=== PATIENT | male | born 1955 | race Caucasian/White ===

== ENCOUNTER 2019-04-19 11:50 | Inpatient (IN) | payer OTHER ==
[~2019-04-19] VITALS: Ht 170.2 cm; Wt 95.3 kg
[2019-04-19 11:50] VITALS: BP 185/84
[2019-04-19] MEDS ORDERED: ASA81BEC PO (12:09)
[2019-04-19] MEDS ORDERED: CASODEX 50 MG T50 MG PO (12:09)
[2019-04-19] MEDS ORDERED: TAMSULOSIN HCL0.4 MG PO (12:09)
[2019-04-19] MEDS ORDERED: PLAVIX 75 MG TA75 MG PO (12:09)
[2019-04-19] MEDS ORDERED: LISINOPRIL2.5 MG PO (12:09)
[2019-04-19] MEDS ORDERED: SYMBICORT160 MCG/4. INH (12:10)
[2019-04-19] MEDS ORDERED: VENTOLIN HFA INH8 GM INH (12:10)
[2019-04-19 12:38] LABS: ABSOLUTE BASOPHILS 0.1 thou/uL (0.0-0.2); ABSOLUTE LYMPHOCYTES 0.7 thou/uL (0.8-5.3); ABSOLUTE NEUTROPHILS 5.9 thou/uL (1.6-8.1); BASOPHILS 0.8 %; EOSINOPHILS 0.5 %; HEMATOCRIT 38.6 % (42.0-52.0); HEMOGLOBIN 13.5 gm/dL (14.0-18.0); LYMPHOCYTES 9.3 %; MCH 34.8 pg (26.0-34.0); MCHC 35.1 g/dL (28.0-37.0); MCV 99.2 fL (80.0-100.0); MONOCYTES 12.7 %; MPV 6.3 fl. (7.2-11.1); NUCLEATED RBCS 0 /100WBC; PLATELET COUNT* 356 thou/uL (150-400); POLYS 76.7 %; RBC 3.89 mil/uL (4.50-6.00); RDW-CV 15.2 % (10.5-14.5); WBC 7.7 thou/uL (4.0-11.0)
[2019-04-19 12:39] LABS: PCO2 40.5 mmHg (35.0-45.0); pH 7.459 (7.340-7.450)
[2019-04-19 12:42] LABS: PO2 175.3 mmHg (75.0-100.0)
[2019-04-19 12:51] LABS: CALCIUM 8.7 mg/dL (8.5-10.1); CREATININE 1.2 mg/dL (0.6-1.3); POTASSIUM 3.4 mmol/L (3.5-5.1)
[2019-04-19 12:54] LABS: PROTIME 10.6 Seconds (9.20-11.50)
[2019-04-19 12:55] LABS: ALBUMIN 3.4 g/dL (3.4-5.0); MAGNESIUM 1.8 mg/dL (1.8-2.4); TOTAL BILIRUBIN 0.3 mg/dL (<0.1-1.0); TOTAL PROTEIN 7.7 g/dL (6.4-8.2)
[2019-04-19 15:48] LABS: INFLUENZA A ANTIGEN Negative (Negative); INFLUENZA B ANTIGEN Negative (Negative)
[2019-04-19 16:36] VITALS: BP 110/78
[2019-04-19 17:00] VITALS: BP 132/83
[2019-04-19 17:05] VITALS: BP 131/69
--- NOTE | 2019-04-19 17:37 | NUR ---
REC'D REPORT FROM ED RN APPROX 1635. PATIENT TO UNIT VIA GURNEY AND ED STAFF AT 1648. A&OX4, ABLE TO AMBULATE FROM GURNEY TO BED WITH MINIMUM ASSIST AND CAN COMMUNICATE NEEDS TO STAFF. ASSESSMENT COMPLETE, VS OBTAINED. PATIENT IS TACHYPNEIC AND ST ON THE MONITOR. O2 SATS 93% ON 2L. ORIENTED TO ROOM, BED CONTROLS, CALL LIGHT WITHIN REACH. PATIENT WITH STEADY GAIT.
[2019-04-19 20:00] VITALS: BP 149/78
[2019-04-20] VITALS: BP 139/68
--- NOTE | 2019-04-20 02:03 | NUR ---
PT ALERT ORIENTED. UP AD RACHEL IN ROOM. BLADDER SCAN AT SHIFT CHG SHOWED 800MLS. ORDER FOR STRAIGHT CATH OBTAINED. 1000ML DK YELLOW RETURN. BLADDER SCAN AT MN SHOWED 600ML. STRAIGHT CATH WITH 800ML RETURN LIGHT YELLOW. NS AT 150MLS/HR. PT DENIES PAIN. O2 AT 2 LITERS NC. LOOSE COUGH. WCTM.
[2019-04-20 04:00] VITALS: BP 150/81
--- NOTE | 2019-04-20 04:50 | NUR ---
PT CONTINUES TO HAVE URINARY RETENTION. BLADDER SCANNER SHOWED 756MLS. MARTIN PLACED WITH CLEAR YELLOW.
--- NOTE | 2019-04-20 06:36 | NUR ---
ORDER FOR UROLOGY CONSULT OBTAINED. ROUTINE CONSULT PLACED.
[2019-04-20 08:00] VITALS: BP 155/85
[2019-04-20 11:30] VITALS: BP 164/75
[2019-04-20 13:27] LABS: URINE BILIRUBIN NEGATIVE (Negative); URINE BLOOD 3+ (Negative); URINE CLARITY CLEAR; URINE COLOR YELLOW; URINE GLUCOSE-RANDOM NEGATIVE (Negative); URINE KETONES NEGATIVE (Negative); URINE LEUKOCYTES-REFLEX TRACE (Negative); URINE NITRITE-REFLEX NEGATIVE (Negative); URINE PROTEIN TRACE (Negative); URINE UROBILINOGEN 0.2 E.U./dl (0.2-1.0)
[2019-04-20 13:49] LABS: SQUAMOUS 0-3 Few /LPF (0-3); URINE RBC >20 Many /HPF (0-2); URINE WBC-REFLEX 0-5 Rare /HPF (0-5)
[2019-04-20 13:50] LABS: CASTS None Seen /LPF (None Seen); CRYSTALS None Seen /LPF (None Seen); MUCUS None Seen strn/LPF (None Seen)
[2019-04-20 16:00] VITALS: BP 145/71
--- NOTE | 2019-04-20 18:29 | NUR ---
PT VSS, SR TO ST ON TELE, A&OX4, UP AD RACHEL, NC@2L O2- BASELINE, HOURLY ROUNDING PERFORMED, POSSESSIONS AND CALL LIGHT WITHIN REACH.
[2019-04-20 20:00] VITALS: BP 157/80
[2019-04-21] VITALS: BP 156/82
[2019-04-21 04:00] VITALS: BP 167/86
[2019-04-21 05:09] LABS: HEMATOCRIT 36.2 % (42.0-52.0); HEMOGLOBIN 12.3 gm/dL (14.0-18.0); MCH 34.1 pg (26.0-34.0); MCV 100.4 fL (80.0-100.0); MPV 6.3 fl. (7.2-11.1); RBC 3.61 mil/uL (4.50-6.00); RDW-CV 15.5 % (10.5-14.5); WBC 16.2 thou/uL (4.0-11.0)
[2019-04-21 05:13] LABS: CALCIUM 8.7 mg/dL (8.5-10.1); CREATININE 0.9 mg/dL (0.6-1.3); MAGNESIUM 2.1 mg/dL (1.8-2.4); POTASSIUM 3.9 mmol/L (3.5-5.1)
[2019-04-21] MEDS ORDERED: PREDNISONE 20 M20 MG PO (07:43)
[2019-04-21] MEDS ORDERED: MUCINEX600 MG PO (07:43)
[2019-04-21] MEDS ORDERED: LEVAQUIN 750 M750 MG PO (07:43)
[2019-04-21 08:08] VITALS: BP 162/75
[2019-04-21 11:27] VITALS: BP 147/85
--- NOTE | 2019-04-21 12:40 | EKG ---
[place] [address] ELECTROCARDIOGRAM REPORT Name: MARY ELLEN ELMORE Room: [address] ADM IN [facility].#: [id number] Admission: 04/19/19 Attend Phys: Shahid Pratt MD Discharge: Date of : 57 Report #: [id number] THIS REPORT FOR: //name// [facility] ED Test Date: 2019-04-19 Test Time: 12:04:06 Pat Name: MARY ELLEN ELMORE Department: Room: [facility] Gender: M Guide Winder: ANTONIETA : 1955 Requested By: Shira Rocha Order Number: [id number] MD: Fadi Mijares Measurements Intervals [place] Rate: 121 P: 78 SC: 138 QRS: 46 QRSD: 79 T: 84 QT: 310 QTc: 440 Interpretive Statements Sinus tachycardia LAE, consider biatrial enlargement Anterior infarct, old Borderline repolarization abnormality No previous ECG available for comparison Electronically Signed On 04-21-2019 12:39:37 RATE QUOTING OPERATOR by Fadi Mijares [email or web address] <ELECTRONICALLY SIGNED> By: Fadi Mijares MD, [facility] 04/21/19 1239 1204 1204 Fadi Mijares MD, FACC /EPI
--- NOTE | 2019-04-21 19:52 | NUR ---
Patient awake in bed. All safety measures maintained. Shortness of breath and chest tightness with ambulation this afternoon. Physician notified and discharge delayed.
[2019-04-21 20:00] VITALS: BP 152/88
--- NOTE | 2019-04-22 06:32 | NUR ---
PATIENT SLEPT WELL DURING THIS SHIFT. PT ON O2 @ 2 LITERS PER NASAL CANNULA. PT WITH MARTIN CATHETER WITH YELLOW URINE. PT DENIES PAIN/NAUSEA DURING THIS SHIFT. PT DENIES NEEDS AT THIS TIME. FREQUENTLY USED ITEMS AND CALL LIGHT WITHIN REACH. SIDERAILS UPX2. WILL CONTINUE TO MONITOR.
[2019-04-22 08:01] VITALS: BP 164/77
--- NOTE | 2019-04-22 12:00 | NUR ---
CM COMPLETED INITIAL ASSESSMENT TO DISCUSS D/C PLANNING. PT STATES HE LIVES AT HOME W/HIS ELDERLY FATHER. PT STATED IS IS SEMI-ACTIVE AND INDEPENDENT W/ADLS. PT DRIVES. PT IS CURRENTLY DOING OUTPATIENT PULMONARY REHAB. PT HAS NO HX OF SNF/HH. PT HAS NEBULIZER, CONCENTRATOR, WALKER AND CANE AT HOME. PT HAD OZ TANK DELIVERED TO HIS ROOM. PT HAS COUSIN WHO FLEW IN FROM OUT OF TOWN TO HELP OUT FOR A FEW DAYS. CM TO CONT TO FOLLOW TO ASSIST NEEDED.
[2019-04-22 15:44] VITALS: BP 164/77
[2019-04-22 15:51] VITALS: BP 164/77
--- NOTE | 2019-04-22 16:26 | NUR ---
SENT REFERRALS TO: [facility] [phone] [facility] [phone] [facility] [phone]
[2019-04-22 16:56] VITALS: BP 164/77
[2019-04-22 17:00] VITALS: BP 160/89
--- NOTE | 2019-04-22 18:09 | NUR ---
PT A&OX4 VSS. PT IV DC'D, NO REDNESS/SWELLING NOTED AT SITE. PT ON 2L O2 HERE WELL HOME. PT HAS MARTIN R/T URINARY RETENTION, PT WILL DC HOME WITH MARTIN IN PLACE. PT UP AD RACHEL. PT LUNGS SOUNDS COARSE UPON EXAM. RT ADMINISTERED NEB TX THIS SHIFT. PT TO HAVE [facility] [phone] WITH NURSING AND PT SERVICES. [facility] TO CONTACT PT TO SET APPT. PT RX CALLED INTO PHARMACY YESTERDAY, MEDS PICKED UP BY FAMILY PRIOR TO DC FROM HOSPITAL. PT STATES UNDERSTANDING OF DC INSTRUCTIONS AND RX INFORMATION PROVIDED. PT AGREES TO F/U WITH APPROPRIATE POHYSICIANS DIRECTED. PT LEAVES UNIT IN WC ON OXYGEN PER NASAL CANNULA. PT ESCORTED FROM UNIT WITH NURSING STAFF.
--- NOTE | 2019-04-25 15:18 | CON ---
[address] [address] CONSULTATION Name: MARY ELLEN ELMORE Room: [address] IN M.R.#: [id number] Admission: 04/19/19 Attend Phys: Shahid Pratt MD Discharge: 04/22/19 Date of : 57 Report #: [id number] THIS REPORT FOR: //name// CC: Shahid Davidson DATE OF SERVICE: 04/19/2019 REFERRING PHYSICIAN: Shahid Pratt MD CONSULTING PHYSICIAN: Shahid Kauffman MD REASON FOR CONSULTATION: Urinary retention. HISTORY OF PRESENT ILLNESS: This is a 64-year-old gentleman with a history of prostate cancer. He is well known to my partner, Dr. Alejandro. He saw Dr. Alejandro about 3 weeks ago. He is currently on Casodex and LHRH agonist for his prostate cancer. He presented to the Emergency Room and was admitted for COPD exacerbation. He was also found to be in acute urinary retention. He underwent straight cath on several occasions with residual greater than 1500. Lock catheter was then placed to dependent drainage. He is still undergoing evaluation and workup for his COPD. He noted at home that he was urinating without difficulty, but did note that it was fairly small amounts. Denies any dysuria, hematuria, frequency or urgency. He has had some problems with gross hematuria intermittently as well as gross blood per rectum. This was felt to be due to his radiation for his prostate cancer and he was recently referred by Dr. Alejandro to hyperbaric oxygen treatment. He has not had a chance to set those up yet. PAST MEDICAL HISTORY: Hypertension, prostate cancer, COPD and coronary artery disease. ALLERGIES: PENICILLIN. FAMILY HISTORY: Noncontributory. SOCIAL HISTORY: Heavy smoker, occasional alcohol use. MEDICATIONS: Tamsulosin, aspirin, Casodex, Plavix, lisinopril, Symbicort and albuterol. REVIEW OF SYSTEMS: CONSTITUTIONAL: He denies any fevers or chills. PULMONARY: He does note shortness of breath, difficulty catching his air, especially with exertion. CARDIOVASCULAR: He does have some orthopnea, [place] [address] CONSULTATION Name: MARY ELLEN ELMORE Room: [address]#: [id number] Admission: 04/19/19 Attend Phys: Shahid Pratt MD Discharge: 04/22/19 Date of : 57 Report #: [id number]. GASTROINTESTINAL: No nausea or vomiting. He does have some gross blood per rectum. HEMATOLOGIC: No easy bruising or bleeding. ENDOCRINE: No problems with hot flashes or cold intolerance. He is not diabetic. LYMPHATIC: He denies any swollen lymph nodes. EARS, NOSE AND THROAT: He denies any earaches or hearing loss. No sore throat. No recent visual changes. GENITOURINARY: See HPI. MUSCULOSKELETAL: No recent aches or pains. No changes in joints. No swelling. PHYSICAL EXAMINATION: VITAL SIGNS: Temperature is 36.6, heart rate 104, respiratory rate 18 and blood pressure 155/85. GENERAL: He is alert and oriented x 3. He is in no apparent distress. HEENT: Normocephalic and atraumatic. O2 per nasal cannula. Respirations are mildly labored with conversation. CARDIOVASCULAR: Regular rate and rhythm. ABDOMEN: Soft, nondistended and nontender. BACK: No CVA tenderness. EXTREMITIES: He has got a normal penis and scrotum. Lock catheter dependent drainage with urine clear. Good range of motion. No cyanosis, clubbing or edema. NEUROLOGIC: Cranial nerves 2-12 are intact. LABORATORY DATA: Sodium 139, potassium 3.4, BUN 7 and creatinine 1.2. White count 7.7, hemoglobin 13.5 and platelets 356. ASSESSMENT AND PLAN: 1. Acute urinary retention is likely multifactorial. The patient does not have a prostate, but starting Flomax is reasonable as I can have some benefit in this setting, would continue tamsulosin/Flomax. He does note that he is constipated, working on a bowel regimen. Many of the medications he is on for COPD, are known to cause or exacerbate retention. This may be contributing to his symptoms, would continue Lock for now. We did discuss clean intermittent catheterization, but the patient does not feel that he is able to do that at this time. It sounds like the patient may be discharged today in the next day or two. I would continue the Lokc for at least 5 days. He can follow up as an outpatient for a voiding trial at that time. We will check a urinalysis. 2. Prostate cancer. PSA earlier this month was 4.17. He is currently on LHRH agonist and Casodex, I will continue those. Follow up with Dr. Alejandro as scheduled. 3. Gross hematuria. His urine is visibly clear in his catheter today. Continue to arrange hyperbaric oxygen as planned by Dr. Alejandro. Hopefully, the [address] [address] CONSULTATION Name: MARY ELLEN ELMORE Room: [address] IN [facility].#: [id number] Admission: 04/19/19 Attend Phys: Shahid Pratt MD Discharge: 04/22/19 Date of : 57 Report #: [id number] patient will be able to lie flat for his treatments. We will try to recommend maximizing his lungs if possible. <ELECTRONICALLY SIGNED> By: Fadi March MD 04/25/19 1518 1048 1436Shahid Kauffman MD /nt
== END 2019-04-22 18:15 | disposition home health service (06) | DRG 871 ==
LOC: M.ERS 11:50 → M.TBA-ER 15:50 → M.2W 15:50 → M.ORTHSURG 04-21 19:50
PROVIDERS: Personal Emergency Response Attendant; ADMIT Internal Medicine
DX: A41.9 Sepsis, unspecified organism (principal); J96.01 Acute respiratory failure with hypoxia; J15.6 Pneumonia due to other Gram-negative bacteria; J44.1 Chronic obstructive pulmonary disease with (acute) exacerbation; N30.41 Irradiation cystitis with hematuria; J44.0 Chronic obstructive pulmonary disease with (acute) lower respiratory infection; I25.10 Atherosclerotic heart disease of native coronary artery without angina pectoris; R33.9 Retention of urine, unspecified; J20.9 Acute bronchitis, unspecified; E87.6 Hypokalemia; Z88.0 Allergy status to penicillin; Z99.81 Dependence on supplemental oxygen; Z85.46 Personal history of malignant neoplasm of prostate; Z95.1 Presence of aortocoronary bypass graft; Z28.21 Immunization not carried out because of patient refusal

== ENCOUNTER 2020-03-19 13:16 | Emergency (ER) | payer OTHER ==
[~2020-03-19] VITALS: Ht 170.2 cm; Wt 86.2 kg
[~2020-03-19 13:16] MED LIST: ASA81BEC PO; CASODEX 50 MG T50 MG PO; LEVAQUIN 750 M750 MG PO; LISINOPRIL2.5 MG PO; MUCINEX600 MG PO; PLAVIX 75 MG TA75 MG PO; PREDNISONE 20 M20 MG PO; SYMBICORT160 MCG/4. INH; TAMSULOSIN HCL0.4 MG PO; VENTOLIN HFA INH8 GM INH
[2020-03-19] MEDS ORDERED: LIPITOR40 MG PO (13:34)
[2020-03-19] MEDS ORDERED: NORCO 5-325 TA1 EAC2 PO (13:35)
[2020-03-19 15:30] LABS: ABSOLUTE BASOPHILS 0.1 thou/uL (0.0-0.2); ABSOLUTE LYMPHOCYTES 1.8 thou/uL (0.8-5.3); ABSOLUTE MONOCYTES 0.8 thou/uL (0.0-1.2); ABSOLUTE NEUTROPHILS 9.3 thou/uL (1.6-8.1); BASOPHILS 1.2 %; EOSINOPHILS 0.3 %; HEMATOCRIT 37.6 % (42.0-52.0); HEMOGLOBIN 12.3 gm/dL (14.0-18.0); LYMPHOCYTES 15.3 %; MCH 32.9 pg (26.0-34.0); MCHC 32.6 g/dL (28.0-37.0); MCV 100.9 fL (80.0-100.0); MONOCYTES 6.4 %; MPV 7.1 fl. (7.2-11.1); NUCLEATED RBCS 0 /100WBC; PLATELET COUNT* 325 thou/uL (150-400); POLYS 76.8 %; RBC 3.73 mil/uL (4.50-6.00); RDW-CV 16.7 % (10.5-14.5); WBC 12.1 thou/uL (4.0-11.0)
[2020-03-19 15:32] LABS: CALCIUM 8.6 mg/dL (8.5-10.1); CREATININE 1.4 mg/dL (0.6-1.3); POTASSIUM 4.3 mmol/L (3.5-5.1)
[2020-03-19 15:37] LABS: ALBUMIN 3.1 g/dL (3.4-5.0); TOTAL BILIRUBIN 0.6 mg/dL (<0.1-1.0); TOTAL PROTEIN 7.1 g/dL (6.4-8.2)
[2020-03-19 15:51] LABS: URINE BLOOD NEGATIVE (Negative); URINE CLARITY CLEAR; URINE COLOR YELLOW; URINE GLUCOSE-RANDOM TRACE (Negative); URINE KETONES TRACE (Negative); URINE LEUKOCYTES-REFLEX NEGATIVE (Negative); URINE PROTEIN 2+ (Negative); URINE SPECIFIC GRAVITY 1.025 (1.005-1.030)
[2020-03-19 15:54] LABS: URINE BILIRUBIN 2+ (Negative); URINE NITRITE-REFLEX POSITIVE (Negative)
[2020-03-19 15:58] LABS: CRYSTALS None Seen /LPF (None Seen); HYALINE CASTS >10 Many /LPF (None Seen); ICTOTEST (BILI CONFIRMATORY) Positive (Negative); SQUAMOUS 0-3 Few /LPF (0-3); URINE RBC 0-2 Rare /HPF (0-2); URINE WBC-REFLEX 0-5 Rare /HPF (0-5)
[2020-03-19] MEDS ORDERED: APAP W/CODEINE1 TA2 PO (17:12)
[2020-03-19] MEDS ORDERED: FLAGYL500 M1 PO (17:12)
[2020-03-19] MEDS ORDERED: ONDANSETRON ODT4 MG PO (17:12)
[2020-03-19] MEDS ORDERED: CIPRO500 MG PO (17:12)
[2020-03-19 17:24] VITALS: BP 126/71
--- NOTE | 2020-03-20 15:40 | EKG ---
[place] [address] ELECTROCARDIOGRAM REPORT Name: MARY ELLEN ELMORE Room: [facility]#: [id number] Admission: 03/19/20 Attend Phys: Discharge: 03/19/20 Date of : 57 Date of Service: 03/19/20 1530 Report #: [id number] THIS REPORT FOR: //name// [facility] ED Test Date: 2020-03-19 Test Time: 15:30:00 Pat Name: MARY ELLEN ELMORE Department: Room: Gender: Hair Specialist: [place] : 1955 Requested By: Marti Mathew Order Number: [id number] MD: Gabo Saab Measurements Intervals [place] Rate: 91 P: 33 FL: 99 QRS: 56 QRSD: 80 T: 82 QT: 367 QTc: 452 Interpretive Statements Sinus rhythm Short FL interval Baseline wander in lead(s) V6 Compared to ECG 04/19/2019 12:04:06 Short FL interval now present Sinus tachycardia no longer present Myocardial infarct finding no longer present Electronically Signed On 03-20-2020 15:40:42 REGISTERED RESPIRATORY THERAPIST by Gabo Saab [email or web address] <ELECTRONICALLY SIGNED> By: Samantha Saab MD, FAC 03/20/20 1540 29 29 Samantha Saab MD, FAC /EPI
== END 2020-03-19 17:25 | disposition home or self-care (01) ==
LOC: M.ERS 13:16
PROVIDERS: Physician Assistant
DX: R10.30 Lower abdominal pain, unspecified (principal); R11.2 Nausea with vomiting, unspecified; R20.0 Anesthesia of skin; K12.0 Recurrent oral aphthae; I10 Essential (primary) hypertension; F17.210 Nicotine dependence, cigarettes, uncomplicated; Z20.828 Contact with and (suspected) exposure to other viral communicable diseases; Z98.890 Other specified postprocedural states; Z79.82 Long term (current) use of aspirin; Z79.899 Other long term (current) drug therapy; Z88.0 Allergy status to penicillin

== ENCOUNTER 2020-03-23 09:41 | Inpatient (IN) | payer OTHER ==
[~2020-03-23] VITALS: Ht 172.7 cm; Wt 88.1 kg
--- NOTE | ~2020-03-23 | EMG ---
[address] [address] EMG NERVE CONDUCTION REPORT Name: MARY ELLEN ELMORE Room: [address] IN M.R.#: [id number] Admission: 03/23/20 Attend Phys: Emma Barron Discharge: Date of : 57 Report #: [id number] THIS REPORT FOR: //name// CC: Birgit Tinajero DATE OF SERVICE: 03/29/2020 The patient's EMG was attempted in an old machine, which we were able to get. The machine did not function properly many times Therefore, the results should be considered tentative. I did the left side. I was able to do the left posterior tibial, which showed a distal latency of 7.0, amplitude of 4.8, conduction velocity of 34. Left common peroneal nerve showed a distal latency of 6.7, amplitude of 1.2, conduction velocity of 54. Extensor digitorum brevis appeared to be atrophic. I tried the left sural nerve, there was no response. Left median motor showed a distal latency of 4.9, amplitude of 1.9, conduction velocity of 48. Left median sensory showed only questionable response at a distal latency of 3.7 and an amplitude of 9.3. Left ulnar motor showed a distal latency of 3.8, amplitude of 3.4. Sampling of left tibialis anterior and left lateral gastrocs were mostly unremarkable. IMPRESSION: This study is difficult to interpret. There is no sural sparing. There appeared to be generalized neuropathy, but some of the finding does fall in the demyelinating range. 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 However, the possibility of Guillain-Beloit need to be entertained and the patient will have a spinal tap to further evaluate that. Thank you very much for this referral. By: 1744 [id number] Zepeda MD /nt
[~2020-03-23 09:41] MED LIST changes: +APAP W/CODEINE1 TA2 PO; +CIPRO500 MG PO; +FLAGYL500 M1 PO; +LIPITOR40 MG PO; -LISINOPRIL2.5 MG PO; +LISINOPRIL20 MG PO; +NORCO 5-325 TA1 EAC2 PO; +ONDANSETRON ODT4 MG PO
[2020-03-23 09:46] VITALS: BP 121/74
[2020-03-23 10:21] LABS: HEMATOCRIT 38.6 % (42.0-52.0); HEMOGLOBIN 12.8 gm/dL (14.0-18.0); MCH 33.4 pg (26.0-34.0); MCHC 33.2 g/dL (28.0-37.0); MCV 100.4 fL (80.0-100.0); NUCLEATED RBCS 0 /100WBC; PLATELET COUNT* 358 thou/uL (150-400); RBC 3.84 mil/uL (4.50-6.00)
[2020-03-23 10:53] LABS: ABSOLUTE LYMPHOCYTES 0.7 thou/uL (0.8-5.3); ABSOLUTE MONOCYTES 0.4 thou/uL (0.0-1.2); PLATELET ESTIMATE ADEQUATE
[2020-03-23 10:57] LABS: CALCIUM 7.5 mg/dL (8.5-10.1); POTASSIUM 4.6 mmol/L (3.5-5.1)
[2020-03-23 11:01] LABS: TOTAL BILIRUBIN 0.6 mg/dL (<0.1-1.0); TOTAL PROTEIN 7.2 g/dL (6.4-8.2)
[2020-03-23 15:17] LABS: URINE BILIRUBIN NEGATIVE (Negative); URINE BLOOD TRACE (Negative); URINE CLARITY CLEAR; URINE COLOR YELLOW; URINE GLUCOSE-RANDOM NEGATIVE (Negative); URINE KETONES NEGATIVE (Negative); URINE LEUKOCYTES-REFLEX NEGATIVE (Negative); URINE NITRITE-REFLEX NEGATIVE (Negative); URINE PROTEIN 3+ (Negative); URINE UROBILINOGEN 0.2 E.U./dl (0.2-1.0)
[2020-03-23 15:32] LABS: AMORPHOUS URATES Moderate /LPF (None Seen); BACTERIA-REFLEX 1-9 Few /HPF (None Seen); FINE GRANULAR CASTS 0-3 Few /LPF (None Seen); HYALINE CASTS 0-3 Few /LPF (None Seen); SQUAMOUS 4-10 Moderate /LPF (0-3); URINE RBC 0-2 Rare /HPF (0-2); URINE WBC-REFLEX 6-15 Few /HPF (0-5)
[2020-03-23 17:40] VITALS: BP 119/86
[2020-03-23 18:00] VITALS: BP 145/76
[2020-03-23 20:00] VITALS: BP 166/82
[2020-03-24] VITALS: BP 123/72
[2020-03-24 04:11] VITALS: BP 139/82
[2020-03-24 05:00] LABS: CALCIUM 7.1 mg/dL (8.5-10.1); CREATININE 5.3 mg/dL (0.6-1.3)
[2020-03-24 05:03] LABS: MAGNESIUM 1.5 mg/dL (1.8-2.4); PHOSPHORUS* 3.4 mg/dL (2.5-4.9)
[2020-03-24 05:04] LABS: POTASSIUM 4.8 mmol/L (3.5-5.1)
[2020-03-24 11:09] VITALS: BP 136/76
--- NOTE | 2020-03-24 12:43 | EKG ---
[place] [address] ELECTROCARDIOGRAM REPORT Name: MARY ELLEN ELMORE Room: [address] ADM IN [facility]#: [id number] Admission: 03/23/20 Attend Phys: Stuart Tinajero Discharge: Date of : 57 Date of Service: 03/23/20 1011 Report #: [id number] THIS REPORT FOR: //name// [facility] ED Test Date: 2020-03-23 Test Time: 10:11:36 Pat Name: MARY ELLEN ELMORE Department: Room: [facility] Gender: M Escort Blind: [place] : 1955 Requested By: Tab Sifuentes Order Number: [id number] MD: Kartik Bain Measurements Intervals [place] Rate: 96 P: 21 FL: 107 QRS: 59 QRSD: 74 T: 35 QT: 355 QTc: 449 Interpretive Statements Sinus rhythm Short FL interval Low voltage, extremity leads Compared to ECG 03/19/2020 15:30:00 No significant changes noted Electronically Signed On 03-24-2020 12:43:49 PHOTOGRAPHIC EQUIPMENT INSPECTOR by Kartik Bain [email or web address] <ELECTRONICALLY SIGNED> By: Kartik Bain MD, FACC 03/24/20 1243 1011 1011 Kartik Bain MD, FACC /EPI
[2020-03-24 13:21] VITALS: BP 140/77
[2020-03-24 17:44] VITALS: BP 126/71
[2020-03-24 20:00] VITALS: BP 163/60
[2020-03-25] VITALS: BP 150/80
[2020-03-25 04:00] VITALS: BP 142/80
[2020-03-25 04:58] LABS: ABSOLUTE LYMPHOCYTES 0.9 thou/uL (0.8-5.3); ABSOLUTE MONOCYTES 0.6 thou/uL (0.0-1.2); BASOPHILS 0.3 %; HEMATOCRIT 37.5 % (42.0-52.0); HEMOGLOBIN 12.5 gm/dL (14.0-18.0); LYMPHOCYTES 6.9 %; MCH 33.6 pg (26.0-34.0); MCHC 33.4 g/dL (28.0-37.0); MCV 100.6 fL (80.0-100.0); MONOCYTES 4.7 %; MPV 7.2 fl. (7.2-11.1); NUCLEATED RBCS 0 /100WBC; PLATELET COUNT* 293 thou/uL (150-400); POLYS 88.1 %; RBC 3.73 mil/uL (4.50-6.00); RDW-CV 16.6 % (10.5-14.5); WBC 12.5 thou/uL (4.0-11.0)
[2020-03-25 05:23] LABS: CALCIUM 7.3 mg/dL (8.5-10.1); MAGNESIUM 2.4 mg/dL (1.8-2.4); POTASSIUM 4.8 mmol/L (3.5-5.1)
[2020-03-25 05:32] LABS: CREATININE 6.3 mg/dL (0.6-1.3)
[2020-03-25 08:00] VITALS: BP 162/88
[2020-03-25 12:00] VITALS: BP 118/73
[2020-03-25 16:34] VITALS: BP 143/70
--- NOTE | 2020-03-25 17:18 | CON ---
[address] [address] CONSULTATION Name: MARY ELLEN ELMORE Room: [address] IN .R.#: [id number] Admission: 03/23/20 Attend Phys: Emma Barron Discharge: Date of : 57 Report #: [id number] THIS REPORT FOR: //name// cc: Birgit Davidson MD, Molly MD ~ DATE OF SERVICE: 03/24/2020 NEPHROLOGY CONSULTATION CONSULTING PHYSICIAN: Stuart Tinajero DO REASON FOR NEPHROLOGY CONSULTATION: Acute kidney injury. REASON FOR ADMISSION: Abdominal pain, nausea and vomiting. HISTORY OF PRESENT ILLNESS: This is a 64-year-old male, who came in with abdominal pain and nausea and vomiting, not being able to eat anything. He was here in the hospital, presented to the Emergency Room on 03/19/2020 with similar symptoms and he was sent home on antibiotics for colitis, ciprofloxacin and Flagyl. He had abdominal CT scan with IV contrast at that time and his creatinine was 1.4 at that time, whereas at baseline, his creatinine runs normal at 0.9 and this was 03/2019. The patient also has been taking ibuprofen 800 mg twice a day and he took it for 3 weeks. He did not take it last week, but before that, he took it for a total of 3 weeks for some dental procedure. Lock catheter is in place and he has been making some urine and his creatinine was at 5.0 when he came in yesterday and it is at 5.3 today. He has been getting IV fluids. He is also kept n.p.o. for his abdominal pain and he is going to get an abdominal ultrasound as well, but the abdominal CT scan this time did not reveal much. There is no evidence of any hydronephrosis. ALLERGIES: PENICILLINS. REVIEW OF SYSTEMS: As mentioned in history of present illness, otherwise 10-point review of systems are negative. PAST MEDICAL AND SURGICAL HISTORY: Includes coronary artery bypass, left rotator cuff repair, right wrist surgery, blood clots, hypertension, enlarged prostate, aortic femoral stents. HOME MEDICATIONS: Include tamsulosin, Cipro, Flagyl, aspirin, Casodex and Plavix, budesonide, formoterol and lisinopril 40 mg a day, atorvastatin and albuterol. FAMILY HISTORY: [place] [address] CONSULTATION Name: CATARINAMARY ELLEN Eddie Room: [address]#: [id number] Admission: 03/23/20 Attend Phys: Emma Barron Discharge: Date of : 57 Report #: [id number] SOCIAL HISTORY: He smokes every day. Does not use alcohol or recreational drugs that I know of. PHYSICAL EXAMINATION: VITAL SIGNS: Blood pressure is 139/82, pulse ox is 95% on room air, temperature was 36.7, pulse rate was 85, respiratory rate was 20. GENERAL: He is awake, alert, oriented x 3. HEAD AND EYES: Atraumatic and normocephalic. Conjunctivae normal. EARS, NOSE, AND THROAT: Normal ears and nose. Mucous membranes are moist. NECK: No JVD. CHEST: Bilaterally clear to auscultation anteriorly. No crackles or wheezing. CARDIOVASCULAR: S1, S2 normal. No murmurs. ABDOMEN: Soft, nondistended, nontender. Bowel sounds are present. EXTREMITIES: Lower extremities: There is no lower extremity edema. SKIN: Dry. Turgor is decreased. NEUROLOGIC: Function is grossly intact. PSYCHIATRIC: Mood seems to be normal. LABORATORY DATA: WBC 13, hemoglobin 12.8. Potassium was 4.8, CO2 was 19, BUN was 16, creatinine was 5.3 and other labs are reviewed. IMAGING: Chest x-ray and abdominal CT scan were reviewed. ASSESSMENT: 1. Acute kidney injury in the setting of intravascular volume depletion, dehydration, nausea and vomiting, use of lisinopril at home. His baseline creatinine is normal at 0.9, but it was 1.4, 03/19/2020, when he did get IV contrast. A contrast-induced nephropathy is also possible. He presents with a creatinine of 5.0. He was also started on ciprofloxacin on 03/19/2020. So, acute interstitial nephritis is also a possibility. He has been making some urine. He has a Lock catheter in place. Renal imaging and abdominal CT scan did not show any hydronephrosis. 2. Hypertension. Blood pressure is controlled. Please hold off on the lisinopril. 3. Nausea, vomiting, and abdominal pain. We will defer to primary team. He was recently started on Cipro and Flagyl for his colitis. 4. History of enlarged prostate and likely prostate cancer because he is on Casodex. He has a Lock for now and continue his Flomax. 5. Anion gap metabolic acidosis in the setting of renal insufficiency. 6. Hypomagnesemia. 7. The patient also presented with rectal pain. We will defer to primary team. PLAN: [address] [address] CONSULTATION Name: MARY ELLEN ELMORE Room: [address] IN [facility].#: [id number] Admission: 03/23/20 Attend Phys: Emma Barron Discharge: Date of : 57 Report #: [id number] 1. Continue Lock catheter and strict I's and O's. 2. Once he is started on a diet, it should be a renal diet. 3. Strict I's and O's on him, continue normal saline at 100 mL an hour, continue to hold lisinopril and other nephrotoxic agents. Please do not give him any NSAIDs. No IV contrast. 4. Please replace his magnesium as per protocol. 5. Continue his Flomax. 6. Check morning labs and discussed with the patient's nurse, and the patient will continue to follow with you. <ELECTRONICALLY SIGNED> By: Bushra Gonsalez MD 03/25/20 1718 0715 0822Bushra Gonsalez MD /nt
[2020-03-25 20:10] VITALS: BP 162/77
[2020-03-26] VITALS (7 sets, daily range): BP systolic 143–166; BP diastolic 69–92
[2020-03-26 09:49] LABS: HEMATOCRIT 35.1 % (42.0-52.0); HEMOGLOBIN 11.6 gm/dL (14.0-18.0); MCH 33.8 pg (26.0-34.0); MCHC 33.2 g/dL (28.0-37.0); MCV 101.9 fL (80.0-100.0); MPV 7.5 fl. (7.2-11.1); NUCLEATED RBCS 0 /100WBC; PLATELET COUNT* 366 thou/uL (150-400); RBC 3.44 mil/uL (4.50-6.00); RDW-CV 17.5 % (10.5-14.5); WBC 13.5 thou/uL (4.0-11.0)
[2020-03-26 10:48] LABS: ANION GAP 13 mmol/L (7-16); BUN 42 mg/dL (7-18); CHLORIDE 106 mmol/L (98-107); CO2 17 mmol/L (21-32); CREATININE 6.8 mg/dL (0.6-1.3); GLUCOSE 163 mg/dL (70-99); POTASSIUM 4.9 mmol/L (3.5-5.1); SODIUM 136 mmol/L (136-145)
[2020-03-26 10:48] LABS: ABSOLUTE LYMPHOCYTES 0.8 thou/uL (0.8-5.3); ABSOLUTE MONOCYTES 0.5 thou/uL (0.0-1.2); ABSOLUTE NEUTROPHILS 12.2 thou/uL (1.6-8.1); PLATELET ESTIMATE ADEQUATE
[2020-03-26 10:53] LABS: ALBUMIN 2.5 g/dL (3.4-5.0); ALKALINE PHOSPHATASE 157 U/L (46-116); SGOT 86 U/L (15-37); SGPT 36 U/L (30-65); TOTAL BILIRUBIN 0.3 mg/dL (<0.1-1.0); TOTAL PROTEIN 6.1 g/dL (6.4-8.2)
[2020-03-26 10:57] LABS: CALCIUM < 5.0 mg/dL (8.5-10.1)
[2020-03-26 14:06] LABS: IgA 400 mg/dL (61-437); IgG 839 mg/dL (603-1613); IgM 119 mg/dL (20-172)
--- NOTE | 2020-03-26 15:15 | 2DMMODE ---
[place] [address] 2 D/M-MODE ECHOCARDIOGRAM Name: MARY ELLEN ELMORE Room: [address] IN [facility]#: [id number] Admission: 03/23/20 Attend Phys: Stuart Tinajero Discharge: Date of : 57 Date of Service: 03/26/20 1515 Report #: [id number] THIS REPORT FOR: cc: Birgit Davidson MD, Molly MD Blick, David R. MD [facility] ~ APPROVED REPORT Study performed: 03/26/2020 10:25:13 EXAM: Comprehensive 2D, Doppler, and color-flow Echocardiogram Patient Location: In-Patient Room #: [facility] Status: routine BSA: 1.99 HR: 96 bpm BP: 166/91 mmHg Rhythm: NSR Other Information Study Quality: Good Indications Hypertension/HDD 2D Dimensions IVSd: 9.82 (7-11mm) LVOT Diam: 19.38 (18-24mm) LVDd: 41.48 mm PWd: 8.22 (7-11mm) LVDs: 37.41 (25-40mm) Aortic Root: 33.20 mm Volumes Left Atrial Volume (Systole) LA ESV Index: 18.30 mL/m2 Aortic Valve AoV Peak Santhosh.: 1.22 m/s AO Peak Gr.: 5.98 mmHg LVOT Max P.10 mmHg AO Mean Gr.: 3.41 mmHg LVOT Mean P.44 mmHg LVOT Max V: 1.13 m/s AO V2 VTI: 22.31 cm LVOT Mean V: 0.71 m/s SELVIN (VTI): 2.90 cm2 LVOT V1 VTI: 21.96 [place] [address] 2 D/M-MODE ECHOCARDIOGRAM Name: MARY ELLEN LEMORE Room: [address] IN ..#: [id number] Admission: 03/23/20 Attend Phys: Stuart Tinajero Discharge: Date of : 57 Date of Service: 03/26/20 1515 Report #: [id number] Mitral Valve E/A Ratio: 1.12 MV Decel. Time: 259.86 ms MV E Max Santhosh.: 0.71 m/s MV PHT: 75.36 ms MVA (PHT): 2.92 cm2 TDI E/Lateral E': 8.88 E/Medial E': 8.88 Medial E' Santhosh.: 0.08 m/s Lateral E' Santhosh.: 0.08 m/s Pulmonary Valve PV Peak Santhosh.: 0.96 m/s PV Peak Gr.: 3.66 mmHg Left Ventricle The left ventricle is normal size. Regional wall motion abnormalities are noted. There is normal left ventricular wall thickness. Left ventricular systolic function is normal. The left ventricular ejection fraction is within the normal range. LVEF is 50-55%. Grade I - abnormal relaxation pattern. Right Ventricle The right ventricle is normal size. The right ventricular systolic function is normal. Atria The left atrium size is normal. The right atrium size is normal. Aortic Valve The aortic valve is normal in structure. No aortic regurgitation is present. There is no aortic valvular stenosis. Mitral Valve The mitral valve is normal in structure. Trace mitral regurgitation. No evidence of mitral valve stenosis. Tricuspid Valve The tricuspid valve is normal in structure. Unable to assess PA pressure. Trace tricuspid regurgitation. Pulmonic Valve The pulmonary valve is normal in structure. There is no pulmonic [place] [address] 2 D/M-MODE ECHOCARDIOGRAM Name: MARY ELLEN ELMORE Room: [address]#: [id number] Admission: 03/23/20 Attend Phys: Stuart Tinajero Discharge: Date of : 57 Date of Service: 03/26/20 1515 Report #: [id number] Great Vessels The aortic root is normal in size. IVC is normal in size and collapses >50% with inspiration. Pericardium There is no pericardial effusion. <Conclusion> Left ventricular systolic function is normal. The left ventricular ejection fraction is within the normal range. <ELECTRONICALLY SIGNED> By: Fadi Mijares MD, [facility] 03/26/201514 14 14 Fadi Mijares MD, [facility] /INF
[2020-03-26 22:06] LABS: COMPLEMENT-C4 27 mg/dL (12-38)
[2020-03-27 00:08] VITALS: BP 157/84
[2020-03-27 04:00] VITALS: BP 164/95
[2020-03-27 04:17] LABS: BASOPHILS 0.1 %; HEMATOCRIT 29.1 % (42.0-52.0); LYMPHOCYTES 8.9 %; MCH 34.2 pg (26.0-34.0); MCHC 34.4 g/dL (28.0-37.0); MCV 99.4 fL (80.0-100.0); MONOCYTES 8.9 %; NUCLEATED RBCS 0 /100WBC; POLYS 82.1 %; RBC 2.93 mil/uL (4.50-6.00); RDW-CV 16.9 % (10.5-14.5)
[2020-03-27 04:40] LABS: PLATELET COUNT* 287 thou/uL (150-400)
[2020-03-27 04:45] LABS: ALBUMIN 2.4 g/dL (3.4-5.0); PHOSPHORUS* 3.5 mg/dL (2.5-4.9); TOTAL BILIRUBIN 0.4 mg/dL (<0.1-1.0); TOTAL PROTEIN 5.6 g/dL (6.4-8.2)
[2020-03-27 04:52] LABS: CREATININE 4.9 mg/dL (0.6-1.3)
[2020-03-27 12:41] VITALS: BP 127/74
[2020-03-27 13:13] LABS: KAPPA FREE LIGHT CHAINS 47.7 mg/L (3.3-19.4); LAMBDA FREE LIGHT CHAINS 32.8 mg/L (5.7-26.3)
[2020-03-27 13:18] VITALS: BP 127/74
--- NOTE | 2020-03-27 14:21 | CON ---
[address] [address] CONSULTATION Name: MARY ELLEN ELMORE Room: [address] IN [facility].#: [id number] Admission: 03/23/20 Attend Phys: Emma Barron Discharge: Date of : 57 Report #: [id number] THIS REPORT FOR: //name// cc: Birgit Davidson MD, Molly MD ~ DATE OF SERVICE: 03/25/2020 HISTORY OF PRESENT ILLNESS: This is a pleasant 64-year-old male with past medical history significant for prostate cancer, hypertension, coronary artery disease, who presented to the hospital with nausea, vomiting and inability to pass stool. The patient reports he presented to the Emergency Room on 03/19/2020 with similar complaints. He was diagnosed with colitis and CAT scan and discharged home on ciprofloxacin and Flagyl. The patient reports 3 prior to the presentation, he had not had a bowel movement for 7 days and then he had one bowel movement and following since then, he has not had another bowel movement. He denies any abdominal pain at this time and he also denies any nausea. The patient reports his last colonoscopy was 5 years back at [facility] and that was unremarkable. PAST MEDICAL HISTORY: Coronary artery disease, hypertension, hyperlipidemia and prostate cancer. PAST SURGICAL HISTORY: Bypass surgery, left rotator cuff repair, wrist surgery, prostate surgery with radiation. SOCIAL HISTORY: The patient reports smoking 1 pack every day, has been smoking for the last 40 years, takes about 1 beer per day. Denies any recreational drugs. FAMILY HISTORY: There is no family history of colon cancer or Glass related neoplasia. REVIEW OF SYSTEMS: A comprehensive 10-point review of systems is negative except for what was mentioned in HPI. PHYSICAL EXAMINATION: VITAL SIGNS: Temperature 36.3, pulse rate 83, respirations 20, blood pressure 142/80, pulse ox 93% on room air. GENERAL: The patient is alert, awake, oriented x 3. HEENT: Pupils are equal, round, reactive to light and accommodation. Mucous membranes are moist. There is no congestion. LUNGS: Clear to auscultation bilaterally. CARDIOVASCULAR: Rate and rhythm regular, S1, S2 present. ABDOMEN: Soft. There is no distention, [place] [address] CONSULTATION Name: MARY ELLEN ELMORE Room: [address] IN [facility]#: [id number] Admission: 03/23/20 Attend Phys: Emma Barron Discharge: Date of : 57 Report #: [id number] EXTREMITIES: Warm, well perfused. There is no edema. SKIN: Warm, dry. LABORATORY DATA: Hemoglobin 12.5, hematocrit 37.5, platelet count 293, WBC count 12.5. Sodium 137, potassium 4.8, chloride 104, bicarbonate 18, BUN 27, creatinine 6.3. IMAGING: CT abdomen and pelvis performed day before yesterday. He has no hydronephrosis, high density in the kidneys from residual contrast, moderate fatty infiltration of the liver, mild distention of the gallbladder, which is not specific without any inflammatory change. ASSESSMENT AND PLAN: Pleasant 64-year-old male with past medical history of coronary artery disease, prostate cancer, who is presenting with change in bowel habits. I would recommend giving him a dose of magnesium citrate. He has a bowel movement. We can start him on Linzess starting tomorrow. The patient can follow up with us on an outpatient basis for management of his ongoing GI complaints. Thank you for this consultation. <ELECTRONICALLY SIGNED> By: Karri Kim MD 03/27/20 1421 1040 [id number] Kim MD /nt
[2020-03-27 17:29] VITALS: BP 133/82
[2020-03-27 20:00] VITALS: BP 114/74
[2020-03-28] VITALS: BP 163/94
[2020-03-28 04:00] VITALS: BP 156/85
[2020-03-28 04:44] LABS: HEMOGLOBIN 9.5 gm/dL (14.0-18.0); MCH 33.9 pg (26.0-34.0); MCHC 34.1 g/dL (28.0-37.0); MCV 99.4 fL (80.0-100.0); RBC 2.82 mil/uL (4.50-6.00); RDW-CV 16.6 % (10.5-14.5); WBC 10.4 thou/uL (4.0-11.0)
[2020-03-28 04:59] LABS: APTT 22.9 Seconds (25.0-31.3); INR 1.3; PROTIME 13.3 Seconds (9.20-11.50)
[2020-03-28 05:01] LABS: POTASSIUM 3.9 mmol/L (3.5-5.1)
[2020-03-28 05:05] LABS: % SATURATION 84 % (20-39); IRON 154 ug/dL (50-175)
[2020-03-28 05:25] LABS: CREATININE 3.5 mg/dL (0.6-1.3)
[2020-03-28 08:34] LABS: HEPATITIS B SURFACE AG NEGATIVE
[2020-03-28 09:07] LABS: GLOMERULR BASEM MEMBRN AB 7 units (0-20)
[2020-03-28 10:23] LABS: SMEAR FOR EOSINOPHILS No Eosinophils Seen
[2020-03-28 11:00] VITALS: BP 107/68
[2020-03-28 12:00] VITALS: BP 101/43
[2020-03-28 16:00] VITALS: BP 100/60
[2020-03-29] VITALS: BP 174/93
[2020-03-29 04:00] VITALS: BP 171/94
[2020-03-29 04:57] LABS: ABSOLUTE BASOPHILS 0.1 thou/uL (0.0-0.2); ABSOLUTE LYMPHOCYTES 1.3 thou/uL (0.8-5.3); ABSOLUTE MONOCYTES 0.9 thou/uL (0.0-1.2); ABSOLUTE NEUTROPHILS 9.8 thou/uL (1.6-8.1); BASOPHILS 0.5 %; HEMATOCRIT 27.4 % (42.0-52.0); HEMOGLOBIN 9.4 gm/dL (14.0-18.0); LYMPHOCYTES 10.7 %; MCH 33.5 pg (26.0-34.0); MCHC 34.3 g/dL (28.0-37.0); MCV 97.8 fL (80.0-100.0); MONOCYTES 7.1 %; MPV 7.2 fl. (7.2-11.1); NUCLEATED RBCS 0 /100WBC; PLATELET COUNT* 247 thou/uL (150-400); POLYS 81.7 %; RDW-CV 16.4 % (10.5-14.5)
[2020-03-29 05:03] LABS: CALCIUM 6.6 mg/dL (8.5-10.1); POTASSIUM 3.7 mmol/L (3.5-5.1)
[2020-03-29 05:26] LABS: CREATININE 2.2 mg/dL (0.6-1.3)
[2020-03-29 08:30] VITALS: BP 154/90
[2020-03-29 12:15] VITALS: BP 105/69
[2020-03-29 15:51] VITALS: BP 141/80
[2020-03-29 20:30] VITALS: BP 159/101
[2020-03-30] VITALS: BP 146/79
[2020-03-30 04:00] VITALS: BP 144/82
[2020-03-30 04:21] LABS: ABSOLUTE BASOPHILS 0.1 thou/uL (0.0-0.2); ABSOLUTE LYMPHOCYTES 1.5 thou/uL (0.8-5.3); ABSOLUTE MONOCYTES 1.1 thou/uL (0.0-1.2); ABSOLUTE NEUTROPHILS 12.6 thou/uL (1.6-8.1); BASOPHILS 0.4 %; HEMATOCRIT 29.5 % (42.0-52.0); HEMOGLOBIN 9.9 gm/dL (14.0-18.0); LYMPHOCYTES 9.9 %; MCH 33.5 pg (26.0-34.0); MCHC 33.6 g/dL (28.0-37.0); MCV 99.8 fL (80.0-100.0); MPV 7.1 fl. (7.2-11.1); NUCLEATED RBCS 0 /100WBC; PLATELET COUNT* 244 thou/uL (150-400); POLYS 82.7 %; RBC 2.95 mil/uL (4.50-6.00); RDW-CV 16.6 % (10.5-14.5); WBC 15.2 thou/uL (4.0-11.0)
[2020-03-30 04:34] LABS: APTT 22.7 Seconds (25.0-31.3); INR 1.3
[2020-03-30 04:49] LABS: ALBUMIN 2.7 g/dL (3.4-5.0); CREATININE 2.3 mg/dL (0.6-1.3); MAGNESIUM 1.5 mg/dL (1.8-2.4); POTASSIUM 3.5 mmol/L (3.5-5.1); TOTAL BILIRUBIN 0.4 mg/dL (<0.1-1.0); TOTAL PROTEIN 5.8 g/dL (6.4-8.2)
[2020-03-30 08:00] VITALS: BP 148/84
[2020-03-30 12:00] VITALS: BP 130/94
[2020-03-30 15:33] LABS: CSF GLUCOSE 76 mg/dl (40-70); CSF PROTEIN 207.4 mg/dl (15-45)
[2020-03-30 15:52] LABS: CSF CLARITY CLEAR; CSF COLOR COLORLESS; CSF RBC 0 /mm3; CSF WBC 1 /mm3 (0-10); VOLUME 8 ml
[2020-03-30 16:00] VITALS: BP 152/90
[2020-03-30 20:00] VITALS: BP 135/88
[2020-03-31] VITALS: BP 150/78
[2020-03-31 04:00] VITALS: BP 129/78
[2020-03-31 08:00] VITALS: BP 149/93
[2020-03-31 08:34] LABS: ABSOLUTE LYMPHOCYTES 2.3 thou/uL (0.8-5.3); ABSOLUTE MONOCYTES 1.3 thou/uL (0.0-1.2); ABSOLUTE NEUTROPHILS 13.9 thou/uL (1.6-8.1); HEMATOCRIT 29.1 % (42.0-52.0); HEMOGLOBIN 9.7 gm/dL (14.0-18.0); LYMPHOCYTES 13.3 %; MCHC 33.2 g/dL (28.0-37.0); MCV 99.2 fL (80.0-100.0); MONOCYTES 7.5 %; MPV 7.7 fl. (7.2-11.1); NUCLEATED RBCS 0 /100WBC; PLATELET COUNT* 255 thou/uL (150-400); POLYS 79.2 %; RBC 2.93 mil/uL (4.50-6.00); RDW-CV 16.2 % (10.5-14.5); WBC 17.6 thou/uL (4.0-11.0)
[2020-03-31 08:43] LABS: CALCIUM 6.8 mg/dL (8.5-10.1); CREATININE 1.8 mg/dL (0.6-1.3); POTASSIUM 3.1 mmol/L (3.5-5.1); TOTAL BILIRUBIN 0.5 mg/dL (<0.1-1.0); TOTAL PROTEIN 5.3 g/dL (6.4-8.2)
[2020-03-31 12:30] VITALS: BP 147/79
[2020-03-31 16:33] VITALS: BP 129/72
[2020-03-31 20:00] VITALS: BP 148/82
[2020-04-01] VITALS: BP 154/50; BP 154/80
[2020-04-01 04:00] VITALS: BP 165/86
[2020-04-01 04:07] LABS: CALCIUM 6.6 mg/dL (8.5-10.1); CREATININE 1.4 mg/dL (0.6-1.3); POTASSIUM 3.8 mmol/L (3.5-5.1)
[2020-04-01 04:12] LABS: HEMATOCRIT 28.4 % (42.0-52.0); HEMOGLOBIN 9.4 gm/dL (14.0-18.0); MCH 33.2 pg (26.0-34.0); MCHC 33.2 g/dL (28.0-37.0); MCV 99.8 fL (80.0-100.0); MPV 8.1 fl. (7.2-11.1); NUCLEATED RBCS 0 /100WBC; PLATELET COUNT* 235 thou/uL (150-400); RBC 2.84 mil/uL (4.50-6.00); RDW-CV 16.6 % (10.5-14.5); WBC 17.5 thou/uL (4.0-11.0)
[2020-04-01 06:51] LABS: ABSOLUTE LYMPHOCYTES 1.8 thou/uL (0.8-5.3); ABSOLUTE MONOCYTES 1.4 thou/uL (0.0-1.2); ABSOLUTE NEUTROPHILS 14.4 thou/uL (1.6-8.1); ANISOCYTOSIS 1+; PLATELET ESTIMATE ADEQUATE; POIKILOCYTOSIS 1+
[2020-04-01 08:00] VITALS: BP 117/70
[2020-04-01 12:00] VITALS: BP 91/56
[2020-04-01 16:00] VITALS: BP 96/53
[2020-04-01 20:00] VITALS: BP 75/56
[2020-04-02] VITALS (8 sets, daily range): BP systolic 96–162; BP diastolic 47–76
[2020-04-02 06:03] LABS: HEMATOCRIT 29.1 % (42.0-52.0); HEMOGLOBIN 9.8 gm/dL (14.0-18.0); MCH 33.1 pg (26.0-34.0); MCHC 33.5 g/dL (28.0-37.0); MCV 98.8 fL (80.0-100.0); MPV 7.9 fl. (7.2-11.1); RBC 2.95 mil/uL (4.50-6.00); RDW-CV 16.6 % (10.5-14.5); WBC 18.3 thou/uL (4.0-11.0)
[2020-04-02 06:23] LABS: ALBUMIN 3.4 g/dL (3.4-5.0); CALCIUM 6.5 mg/dL (8.5-10.1); CREATININE 1.5 mg/dL (0.6-1.3); MAGNESIUM 1.1 mg/dL (1.8-2.4); POTASSIUM 3.4 mmol/L (3.5-5.1); TOTAL BILIRUBIN 0.6 mg/dL (<0.1-1.0); TOTAL PROTEIN 5.2 g/dL (6.4-8.2)
[2020-04-02 16:07] LABS: CSF ALBUMIN 153 mg/dL (11-48); CSF IGG INDEX 0.6 (0.0-0.7); CSF IgG 17.9 mg/dL (0.0-8.6); CSF/SERUM ALBUMIN INDEX 48 (0-8)
[2020-04-03 00:30] VITALS: BP 117/70
[2020-04-03 04:40] VITALS: BP 129/66
[2020-04-03 08:00] VITALS: BP 124/67
[2020-04-03 08:50] LABS: ABSOLUTE LYMPHOCYTES 1.3 thou/uL (0.8-5.3); ABSOLUTE MONOCYTES 0.9 thou/uL (0.0-1.2); BASOPHILS 0.1 %; HEMATOCRIT 25.9 % (42.0-52.0); HEMOGLOBIN 8.5 gm/dL (14.0-18.0); LYMPHOCYTES 7.8 %; MCH 32.5 pg (26.0-34.0); MCHC 32.8 g/dL (28.0-37.0); MCV 99.2 fL (80.0-100.0); MONOCYTES 5.4 %; MPV 7.7 fl. (7.2-11.1); NUCLEATED RBCS 0 /100WBC; PLATELET COUNT* 265 thou/uL (150-400); POLYS 86.7 %; RBC 2.62 mil/uL (4.50-6.00); RDW-CV 16.9 % (10.5-14.5); WBC 17.3 thou/uL (4.0-11.0)
[2020-04-03 09:01] LABS: APTT 31.7 Seconds (25.0-31.3)
[2020-04-03 09:02] LABS: CALCIUM 6.6 mg/dL (8.5-10.1); CREATININE 1.2 mg/dL (0.6-1.3); POTASSIUM 3.4 mmol/L (3.5-5.1)
[2020-04-03 12:00] VITALS: BP 133/65
[2020-04-03 16:00] VITALS: BP 139/81
[2020-04-03] MEDS ORDERED: PREDNISONE 20 M20 MG PO (16:02)
[2020-04-03] MEDS ORDERED: MELATONIN5 M1 PO (16:02)
[2020-04-03] MEDS ORDERED: MIRTAZAPINE15 M2 PO (16:02)
[2020-04-03] MEDS ORDERED: REGLAN 10 MG TA10 MG PO (16:02)
[2020-04-03] MEDS ORDERED: TRAMADOL 50 MG50 MG PO (16:02)
[2020-04-03] MEDS ORDERED: GABAPENTIN 100100 MG PO (16:02)
[2020-04-03] MEDS ORDERED: ENOXAPARIN40 MG/0.1 SUBQ (16:02)
[2020-04-03] MEDS ORDERED: HYDROCODON-ACE1 EAC7 PO (16:02)
[2020-04-03] MEDS ORDERED: PRENATAL PO (16:02)
[2020-04-03] MEDS ORDERED: NEXIUM40 MG PO (16:02)
[2020-04-03] MEDS ORDERED: LIDOPATCH1 EACH TOP (16:02)
[2020-04-03 16:06] LABS: KAPPA FREE LIGHT CHAINS 13.2 mg/L (3.3-19.4); LAMBDA FREE LIGHT CHAINS 10.1 mg/L (5.7-26.3)
[2020-04-03 18:07] LABS: URINE CADMIUM 2.9 ug/24 hr (0.0-2.9)
[2020-04-03 19:08] LABS: GLOBULIN TOTAL 1.3 g/dL (2.2-3.9); M-SPIKE Not Observed g/dL (Not Observed)
--- NOTE | 2020-04-05 12:38 | CON ---
[address] [address] CONSULTATION Name: ELMOREMARY ELLEN Morgan Room: [address] IN ..#: [id number] Admission: 03/23/20 Attend Phys: Emma Barron Discharge: 04/03/20 Date of : 57 Report #: [id number] THIS REPORT FOR: cc: Birgit Davidson MD, Molly MD ~ Dion Polanco MD DATE OF SERVICE: 04/03/2020 REQUESTING PHYSICIAN: Dr. Zepeda. HISTORY OF PRESENT ILLNESS: A 65-year-old gentleman with past medical history includes a history of COPD. I also suspect that he may have underlying obstructive sleep apnea, not previously diagnosed. The patient was seen in the Emergency Room in this hospital earlier towards the end of February. The patient at that time was having nausea and vomiting as well as abdominal cramping and was discharged on ciprofloxacin and Flagyl for colitis. The patient was subsequently readmitted having persistent vomiting and nausea as well as abdominal pain. The patient since then has been seen by the GI service as well as Neurology and Nephrology as he is now in acute renal failure. The patient also did have a spinal tap and has been diagnosed with Guillain-Denver syndrome and plasmapheresis has been setup. The patient also has a temporary dialysis catheter. The patient at this time has a vital capacity, which is being documented at 1.5 and 1.4 liters. He does have mild shortness of breath and occasional cough, but not much sputum. He does have swelling of lower extremities. He does not have calf pain. The patient has had some sleep complaints including daytime sleepiness, which remain at baseline. His abdominal pain appears to have improved. REVIEW OF SYSTEMS: The patient answers to the negative for 10 questions for review of systems except as mentioned above. PAST MEDICAL HISTORY: Coronary artery disease status post coronary artery bypass graft, right wrist surgery, COPD, hypertension, prostate cancer, peripheral vascular disease, and history of blood clots I do not have details on the blood clots available. The patient's echocardiogram shows a left ventricular ejection fraction of 50-55% without significant elevation in right heart pressures. SOCIAL HISTORY: The patient is an active smoker, has been smoking for several decades. He does have a history of alcohol intake as well; however, there is no known history of heavy alcohol intake. No known history [place] [address] CONSULTATION Name: MARY ELLEN ELMORE Room: [address]#: [id number] Admission: 03/23/20 Attend Phys: Emma Barron Discharge: 04/03/20 Date of : 57 Report #: [id number] ALLERGIES: PENICILLINS ARE MENTIONED ALLERGIES. CURRENT MEDICATIONS: List in [employer] reviewed. HOME MEDICATIONS: List in [employer] reviewed. Also, see discussion above. FAMILY HISTORY: There is no known pertinent family history. PHYSICAL EXAMINATION: GENERAL: He is alert, awake and oriented, does not appear to be in any distress. VITAL SIGNS: Has a pulse of 82, blood pressure of 124/67, respiratory rate is 15-16, heart rate is 82, he is afebrile with a temperature of 36.5, and he is saturating 93%. He is not on supplemental oxygen. HEENT: Head is normocephalic and atraumatic. Pupils are equal and reactive. He does not have throat erythema. He has a narrow airway. NECK: Does not show raised JVP, asymmetry, mass or lymph nodes. CHEST: Symmetrical expansion on inspection and palpation. On auscultation, breath sounds are bilaterally equal, but decreased. No added sounds. HEART: Regular. There is no murmur. ABDOMEN: Soft and nontender. EXTREMITIES: Lower extremities show 2+ edema bilaterally with no calf tenderness. LABORATORY DATA: The patient's chest x-ray from 03/29 shows no increase in pulmonary vascular congestion and no significant infiltrates are identified. ASSESSMENT AND PLAN: 1. Acute respiratory insufficiency/reduced vital capacity. The patient does appear to have significant chronic obstructive pulmonary disease in the background as well. We will try to get previous spirometry for comparison. I also recommend that we go ahead and obtain a bedside spirometry now for further evaluation. The patient's potassium is currently being replaced per the protocol. Once this is replaced, I recommend obtaining an arterial blood gas to see where we stand. Certainly this reduction in vital capacity could be secondary to the Guillain-Denver syndrome; however, his chronic obstructive pulmonary disease as well as poor effort could also be playing a role. The patient likely has underlying obstructive sleep apnea as well. Should he decline therefore, I will have a low threshold of placing him on a BiPAP while asleep. The patient may also benefit from a sleep study as an outpatient. 2. Chronic obstructive pulmonary disease. Note that he is currently on prednisone. I will go ahead and order scheduled nebulized bronchodilators. 3. Edema, lower extremities. Recommend checking a D-dimer and if elevated, [address] [address] CONSULTATION Name: MARY ELLEN ELMORE Room: [address] IN M.R.#: [id number] Admission: 03/23/20 Attend Phys: Emma Barron Discharge: 04/03/20 Date of : 57 Report #: [id number] then recommend checking venous Dopplers. 4. Guillain-Denver syndrome. This was diagnosed by the Neurology service. See discussion above. 5. Acute renal failure, creatinine already improving to 1.2 now. I understand the dialysis catheter has been kept in place for plasmapheresis. Potassium is being replaced. Sodium is elevated, I would defer management to the Nephrology service. 6. Hypersomnia. I suspect there is underlying obstructive sleep apnea. I regardless recommend an outpatient sleep study. 7. Past medical history of blood clots. I do not have details available. 8. Past medical history of coronary artery disease, status post coronary artery bypass graft. 9. History of prostate cancer. I understand the patient may be transferred. Recommendations are as above. In case the patient is transferred, I would defer to the receiving facility for management. Thanks for this consultation. <ELECTRONICALLY SIGNED> By: Dion Polanco MD 04/05/20 1238 1631 1934Agwen Polanco MD /nt
== END 2020-04-03 17:35 | disposition short-term general hospital (02) | DRG 871 ==
LOC: M.ERS 09:41 → M.TBA-ER 12:46 → M.2W 12:46
PROVIDERS: Family Medicine; Internal Medicine; Internal Medicine Hematology & Oncology; Internal Medicine Nephrology; Psychiatry & Neurology Neuromuscular Medicine; ADMIT Internal Medicine; ATTEND Internal Medicine
PROC: B548ZZA Ultrasonography of Superior Vena Cava, Guidance (ICD-10-PCS; principal; 2020-03-26)
PROC: 5A1D70Z Performance of Urinary Filtration, Intermittent, Less than 6 Hours Per Day (ICD-10-PCS; principal; 2020-03-26)
PROC: 02HV33Z Insertion of Infusion Device into Superior Vena Cava, Percutaneous Approach (ICD-10-PCS; principal; 2020-03-26)
PROC: 5A1D70Z Performance of Urinary Filtration, Intermittent, Less than 6 Hours Per Day (ICD-10-PCS; 2020-03-27)
PROC: 0W3P8ZZ Control Bleeding in Gastrointestinal Tract, Via Natural or Artificial Opening Endoscopic (ICD-10-PCS; 2020-03-27)
PROC: 5A1D70Z Performance of Urinary Filtration, Intermittent, Less than 6 Hours Per Day (ICD-10-PCS; 2020-03-28)
PROC: 009U3ZX Drainage of Spinal Canal, Percutaneous Approach, Diagnostic (ICD-10-PCS; 2020-03-30)
PROC: 6A550Z3 Pheresis of Plasma, Single (ICD-10-PCS; 2020-03-30)
PROC: B54NZZA Ultrasonography of Left Upper Extremity Veins, Guidance (ICD-10-PCS; 2020-04-02)
PROC: 6A550Z3 Pheresis of Plasma, Single (ICD-10-PCS; 2020-04-02)
PROC: 05HF33Z Insertion of Infusion Device into Left Cephalic Vein, Percutaneous Approach (ICD-10-PCS; 2020-04-02)
DX: A41.9 Sepsis, unspecified organism (principal); N17.0 Acute kidney failure with tubular necrosis; R53.2 Functional quadriplegia; K22.11 Ulcer of esophagus with bleeding; K21.01 Gastro-esophageal reflux disease with esophagitis, with bleeding; N39.0 Urinary tract infection, site not specified; K22.10 Ulcer of esophagus without bleeding; D62 Acute posthemorrhagic anemia; G61.0 Guillain-Barre syndrome; K92.0 Hematemesis; K52.9 Noninfective gastroenteritis and colitis, unspecified; M48.02 Spinal stenosis, cervical region; N40.0 Benign prostatic hyperplasia without lower urinary tract symptoms; E83.42 Hypomagnesemia; G47.10 Hypersomnia, unspecified; I12.9 Hypertensive chronic kidney disease with stage 1 through stage 4 chronic kidney disease, or unspecified chronic kidney disease; N18.9 Chronic kidney disease, unspecified; E86.9 Volume depletion, unspecified; E86.0 Dehydration; K44.9 Diaphragmatic hernia without obstruction or gangrene; R20.2 Paresthesia of skin; Z20.828 Contact with and (suspected) exposure to other viral communicable diseases; Z92.3 Personal history of irradiation; Z79.899 Other long term (current) drug therapy; Z79.01 Long term (current) use of anticoagulants; Z79.82 Long term (current) use of aspirin; Z88.0 Allergy status to penicillin; Z95.1 Presence of aortocoronary bypass graft; Z85.46 Personal history of malignant neoplasm of prostate

== ENCOUNTER 2020-04-06 11:31 | Inpatient (IN) | payer OTHER ==
[~2020-04-06] VITALS: Ht 177.8 cm; Wt 92.8 kg
[~2020-04-06 11:31] MED LIST changes: +ENOXAPARIN40 MG/0.1 SUBQ; +GABAPENTIN 100100 MG PO; +HYDROCODON-ACE1 EAC7 PO; +LIDOPATCH1 EACH TOP; +MELATONIN5 M1 PO; +MIRTAZAPINE15 M2 PO; +NEXIUM40 MG PO; +PRENATAL PO; +REGLAN 10 MG TA10 MG PO; +TRAMADOL 50 MG50 MG PO
[2020-04-06 20:16] VITALS: BP 174/88
[2020-04-06 23:40] VITALS: BP 185/88
[2020-04-07 04:00] VITALS: BP 179/92
[2020-04-07 09:30] VITALS: BP 163/79
[2020-04-07 12:28] LABS: CALCIUM 6.8 mg/dL (8.5-10.1); CREATININE 0.8 mg/dL (0.6-1.3); MAGNESIUM 1.1 mg/dL (1.8-2.4); PHOSPHORUS* 3.4 mg/dL (2.5-4.9)
[2020-04-07 13:10] VITALS: BP 162/87
[2020-04-07 19:31] VITALS: BP 146/87
[2020-04-07 22:09] VITALS: BP 149/77
[2020-04-08] VITALS: BP 150/79
[2020-04-08 04:00] VITALS: BP 173/92
[2020-04-08 09:00] VITALS: BP 94/46
[2020-04-08 12:28] LABS: MAGNESIUM 1.2 mg/dL (1.8-2.4); POTASSIUM 3.9 mmol/L (3.5-5.1)
[2020-04-08 13:36] VITALS: BP 133/73
[2020-04-08 18:00] VITALS: BP 149/95
[2020-04-08 21:15] VITALS: BP 143/76
[2020-04-09 00:20] VITALS: BP 154/74
[2020-04-09 04:44] VITALS: BP 159/84
[2020-04-09 05:00] LABS: CREATININE 0.8 mg/dL (0.6-1.3); POTASSIUM 4.5 mmol/L (3.5-5.1)
[2020-04-09 07:30] VITALS: BP 148/76
[2020-04-09 08:49] LABS: ABSOLUTE LYMPHOCYTES 1.6 thou/uL (0.8-5.3); ABSOLUTE MONOCYTES 0.7 thou/uL (0.0-1.2); ABSOLUTE NEUTROPHILS 11.1 thou/uL (1.6-8.1); BASOPHILS 0.1 %; EOSINOPHILS 0.2 %; HEMATOCRIT 24.6 % (42.0-52.0); HEMOGLOBIN 8.3 gm/dL (14.0-18.0); LYMPHOCYTES 11.9 %; MCH 33.5 pg (26.0-34.0); MCHC 33.7 g/dL (28.0-37.0); MCV 99.3 fL (80.0-100.0); MONOCYTES 5.2 %; MPV 7.3 fl. (7.2-11.1); NUCLEATED RBCS 0 /100WBC; PLATELET COUNT* 308 thou/uL (150-400); POLYS 82.6 %; RBC 2.48 mil/uL (4.50-6.00); RDW-CV 17.2 % (10.5-14.5); WBC 13.5 thou/uL (4.0-11.0)
[2020-04-09 08:56] LABS: ALBUMIN 3.5 g/dL (3.4-5.0); CALCIUM 6.6 mg/dL (8.5-10.1); CREATININE 0.8 mg/dL (0.6-1.3); TOTAL BILIRUBIN 0.6 mg/dL (<0.1-1.0); TOTAL PROTEIN 5.3 g/dL (6.4-8.2)
[2020-04-09 08:57] LABS: POTASSIUM 3.5 mmol/L (3.5-5.1)
[2020-04-09 14:04] VITALS: BP 173/81
[2020-04-09 15:21] LABS: APTT 22.2 Seconds (25.0-31.3); INR 1.2; PROTIME 12.3 Seconds (9.20-11.50)
[2020-04-09 16:00] VITALS: BP 148/64
[2020-04-09 21:30] VITALS: BP 138/82
[2020-04-10 00:30] VITALS: BP 168/90
[2020-04-10 04:00] VITALS: BP 166/85
[2020-04-10 07:30] VITALS: BP 148/69
[2020-04-10 11:27] LABS: CALCIUM 6.7 mg/dL (8.5-10.1); CREATININE 0.8 mg/dL (0.6-1.3); MAGNESIUM 1.9 mg/dL (1.8-2.4); POTASSIUM 3.5 mmol/L (3.5-5.1)
[2020-04-10 12:30] VITALS: BP 141/79
[2020-04-10 16:00] VITALS: BP 144/75
[2020-04-10 21:00] VITALS: BP 157/81
[2020-04-11 00:59] VITALS: BP 164/79
[2020-04-11 05:04] VITALS: BP 150/74
[2020-04-11 05:09] LABS: HEMATOCRIT 25.8 % (42.0-52.0); HEMOGLOBIN 8.5 gm/dL (14.0-18.0); MCV 100.2 fL (80.0-100.0); MPV 7.6 fl. (7.2-11.1); RBC 2.57 mil/uL (4.50-6.00); RDW-CV 17.2 % (10.5-14.5); WBC 11.9 thou/uL (4.0-11.0)
[2020-04-11 05:45] LABS: ALBUMIN 3.8 g/dL (3.4-5.0); CALCIUM 7.5 mg/dL (8.5-10.1); CREATININE 0.7 mg/dL (0.6-1.3); POTASSIUM 3.7 mmol/L (3.5-5.1); TOTAL BILIRUBIN 0.5 mg/dL (<0.1-1.0); TOTAL PROTEIN 5.2 g/dL (6.4-8.2)
[2020-04-11 05:49] LABS: APTT 23.4 Seconds (25.0-31.3); INR 1.2; PROTIME 12.3 Seconds (9.20-11.50)
[2020-04-11 12:00] VITALS: BP 144/69; BP 148/68
[2020-04-11 17:13] VITALS: BP 121/65
[2020-04-11 20:00] VITALS: BP 104/58
[2020-04-12] VITALS (9 sets, daily range): BP systolic 105–149; BP diastolic 62–90
[2020-04-12 06:36] LABS: ABSOLUTE LYMPHOCYTES 1.5 thou/uL (0.8-5.3); ABSOLUTE MONOCYTES 0.5 thou/uL (0.0-1.2); ABSOLUTE NEUTROPHILS 8.3 thou/uL (1.6-8.1); BASOPHILS 0.1 %; EOSINOPHILS 0.2 %; HEMATOCRIT 23.7 % (42.0-52.0); LYMPHOCYTES 14.6 %; MCH 34.2 pg (26.0-34.0); MCHC 33.5 g/dL (28.0-37.0); MCV 102.1 fL (80.0-100.0); MPV 7.9 fl. (7.2-11.1); NUCLEATED RBCS 0 /100WBC; PLATELET COUNT* 208 thou/uL (150-400); POLYS 80.1 %; RBC 2.33 mil/uL (4.50-6.00); RDW-CV 17.5 % (10.5-14.5); WBC 10.3 thou/uL (4.0-11.0)
[2020-04-12 06:57] LABS: ALBUMIN 4.1 g/dL (3.4-5.0); CALCIUM 7.3 mg/dL (8.5-10.1); CREATININE 0.7 mg/dL (0.6-1.3); POTASSIUM 3.7 mmol/L (3.5-5.1); TOTAL BILIRUBIN 0.5 mg/dL (<0.1-1.0); TOTAL PROTEIN 4.9 g/dL (6.4-8.2)
[2020-04-13 04:00] VITALS: BP 161/85
[2020-04-13 04:40] LABS: ABSOLUTE LYMPHOCYTES 1.3 thou/uL (0.8-5.3); ABSOLUTE MONOCYTES 0.5 thou/uL (0.0-1.2); ABSOLUTE NEUTROPHILS 8.7 thou/uL (1.6-8.1); BASOPHILS 0.1 %; EOSINOPHILS 0.1 %; HEMATOCRIT 22.7 % (42.0-52.0); HEMOGLOBIN 7.7 gm/dL (14.0-18.0); MCH 34.3 pg (26.0-34.0); MONOCYTES 4.9 %; MPV 7.7 fl. (7.2-11.1); NUCLEATED RBCS 0 /100WBC; PLATELET COUNT* 200 thou/uL (150-400); POLYS 82.9 %; RBC 2.25 mil/uL (4.50-6.00); RDW-CV 17.6 % (10.5-14.5); WBC 10.5 thou/uL (4.0-11.0)
[2020-04-13 04:58] LABS: CALCIUM 7.7 mg/dL (8.5-10.1); CREATININE 0.6 mg/dL (0.6-1.3); MAGNESIUM 1.5 mg/dL (1.8-2.4); POTASSIUM 3.9 mmol/L (3.5-5.1)
[2020-04-13 08:00] VITALS: BP 164/88
[2020-04-13 11:45] VITALS: BP 137/84
--- NOTE | 2020-04-13 13:59 | CON ---
[address] [address] CONSULTATION Name: ELMOREMARY ELLEN Morgan Room: [address] IN .R.#: [id number] Admission: 04/06/20 Attend Phys: Emma Barron Discharge: Date of : 57 Report #: [id number] THIS REPORT FOR: cc: Birgit Davidson MD, Molly MD ~ Dion Polanco MD DATE OF SERVICE: 04/11/2020 REQUESTING PHYSICIAN: Dr. Zepeda INDICATION FOR CONSULTATION: Guillain-Bradley syndrome with shortness of breath. HISTORY OF PRESENT ILLNESS: This is a 65-year-old gentleman. His past medical history is as mentioned below. This does include a history of COPD. He also has a clinical history, which is consistent with obstructive sleep apnea. The patient has not been previously diagnosed. The patient was initially admitted to this hospital in February. The patient at that time was complaining of nausea and vomiting and abdominal cramping. He was treated for colitis with ciprofloxacin and Flagyl and was subsequently discharged. The patient was then admitted a second time with persistent nausea and vomiting as well as abdominal pain. At this time, the patient was also seen by the GI service as well as Nephrology and Neurology. The patient was now in acute renal failure. The patient also did have a spinal tap performed and was diagnosed with Guillain-Bradley syndrome and then plasmapheresis was set up. The patient did have a temporary dialysis catheter. At that time, the patient's vital capacity was around 1.5 to 1.4. He was complaining of mild shortness of breath at rest and occasional cough without much sputum. He did have swelling of lower extremities. At that time, there was a concern regarding the patient needing a neurosurgical intervention and therefore he was transferred over to [facility]. I am told that the patient had a COVID-19 test performed at [facility], which was positive. It is not completely clear to me as to whether this was a COVID-19 antigen or PCR. Note that the patient did have a COVID-19 antigens performed previously twice at this hospital. They were both negative. Upon evaluation at [facility], the decision was not to proceed with any neurosurgical evaluation. The patient was subsequently transferred back to [facility]. Initially, he was placed in the COVID area, then he came back here. He had a COVID-19 antigen performed and this was negative. [place] [address] CONSULTATION Name: MARY ELLEN ELMORE Room: [address]#: [id number] Admission: 04/06/20 Attend Phys: Emma Barron Discharge: Date of : 57 Report #: [id number] COVID-19 PCR performed. It was also negative. The patient is now out of the COVID-19 area. He does at this time still have some shortness of breath at rest. He does have a cough as well, but there is not much sputum. He does have swelling of lower extremities, but in fact it looks better than when I last saw him during the last hospitalization. He has had disturbed sleep at night as well as sleepiness during the day. His sleep is at baseline. He answers to the negative for 12 questions for review of systems except as discussed above. PAST MEDICAL HISTORY: Recently diagnosed Guillain-Bradley syndrome, recent acute renal failure, and GI bleed as above, coronary artery disease, status post CABG, COPD, hypertension, prostate cancer, right wrist surgery, peripheral vascular disease. He is reported to have had a blood clot. I do not have details available during a recent echo, which shows a left ventricular ejection fraction of 50-55% without elevation in right heart pressures, recent colitis. SOCIAL HISTORY: The patient is an active smoker, has been smoking for several decades, more than a pack a day. There is also a history of alcohol intake. I do not have details of his alcohol intake available. No known history of illegal drug use. ALLERGIES: PENICILLIN. CURRENT MEDICATIONS: List in [employer] reviewed. HOME MEDICATIONS: List in [employer] reviewed. FAMILY HISTORY: There is no pertinent family history. PHYSICAL EXAMINATION: GENERAL: He was alert, awake and oriented, has seen this morning. VITAL SIGNS: He was mildly tachycardic with a heart rate of 105 to 110, afebrile with a temperature of 36.9, blood pressure 144/69. HEENT: Head is normocephalic and atraumatic. NECK: Does not show raised JVP, asymmetry, mass or lymph nodes. CHEST: Symmetrical expansion on inspection and palpation. On auscultation, breath sounds are bilaterally equal, decreased. No added sounds. HEART: Regular. There is mild tachycardia. There is no murmur. ABDOMEN: Soft and nontender. EXTREMITIES: Lower extremities do show trace to 1+ edema. Edema appears to have decreased compared with when he was last seen on 04/13/2020. SKIN: Dry and intact. NEUROLOGICAL: He did move all extremities. LABORATORY DATA: The patient's lab work is in jiffstore. This was reviewed. [address] [address] CONSULTATION Name: MARY ELLEN ELMORE Room: [address] [facility] IN [facility]#: [id number] Admission: 04/06/20 Attend Phys: Emma Barron Discharge: Date of : 57 Report #: [id number] Also, see discussion above. I did obtain a chest x-ray and reviewed the same as well. He does not show any large infiltrates or increase in pulmonary vascular congestion. ASSESSMENT AND PLAN: 1. Acute respiratory insufficiency and reduced vital capacity in the setting of the Guillain-Bradley syndrome. I would go ahead and obtain a nocturnal pulse oximetry. 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 The patient's insurance however will likely not approve for a BiPAP without first obtaining a sleep study. I will review further once nocturnal pulse oximetry is available tomorrow morning. If the patient remains in this hospital or is transferred to our rehab unit and if he is willing during the stay, we can give him a BiPAP for use while asleep. 2. Guillain-Bradley syndrome. See discussion above regarding consideration for BiPAP while asleep. I would also evaluate for thromboembolism as below if the workup is negative, then I do plan to obtain a bedside spirometry tomorrow and follow trend on his vital capacity as well. 3. COVID-19. It is not known to me as to whether the patient had a COVID-19 antigen or PCR positive at [facility]. All of the testing at this hospital is negative. I would go ahead and obtain a repeat COVID-19 antigen again today. 4. Chronic obstructive pulmonary disease. The patient is noted to be on prednisone as well as nebulized bronchodilators if not needed for other than pulmonary reasons, then prednisone could be tapered off. 5. Edema of lower extremities/evaluation for thromboembolism. Edema is in fact less compared with when I last saw him on 04/03/2020. I would still like to do a D-dimer. If it is elevated, I would like to do venous Dopplers. Note that he does have mild tachycardia. If D-dimer is elevated and venous Dopplers are negative, then I will assess tomorrow regarding consideration for CTA chest. 6. Hypersomnia/probable obstructive sleep apnea outpatient sleep study. 7. Acute renal failure, creatinine has now returned to the normal range. We do give him IV dye. We will need to keep him well hydrated. He has had a temporary dialysis catheter and he has had plasmapheresis. 8. Recent gastrointestinal bleed. 9. Past medical history of blood clots. I do not have details available. 10. Past medical history of coronary artery disease, status post coronary artery bypass graft. 11. Past medical history of prostate cancer. 12. Antibiotic therapy. The patient still is on ciprofloxacin and Flagyl. The indication for antibiotics is not known to me. I would defer [place] [address] CONSULTATION Name: MARY ELLEN ELMORE Room: [facility] IN .R.#: [id number] Admission: 04/06/20 Attend Phys: Emma Barron Discharge: Date of : 57 Report #: [id number] Thanks for this consultation. <ELECTRONICALLY SIGNED> By: Dion Polanco MD 04/13/20 1359 1950 2117Agwen Polanco MD /nt
[2020-04-13 17:11] VITALS: BP 154/71
[2020-04-13 19:45] VITALS: BP 146/73
[2020-04-13 23:52] VITALS: BP 148/85
[2020-04-14 04:57] VITALS: BP 152/90
[2020-04-14 08:00] VITALS: BP 162/76
[2020-04-14 12:00] VITALS: BP 158/78
[2020-04-14 16:00] VITALS: BP 127/59
[2020-04-14 20:00] VITALS: BP 124/82
[2020-04-15 04:00] VITALS: BP 148/86
[2020-04-15 08:00] VITALS: BP 146/71
[2020-04-15 12:00] VITALS: BP 149/62
[2020-04-15 17:00] VITALS: BP 157/78
[2020-04-15 20:00] VITALS: BP 157/78
[2020-04-16 05:18] VITALS: BP 154/75
[2020-04-16 07:50] VITALS: BP 165/85
[2020-04-16 12:14] VITALS: BP 146/74
[2020-04-16 16:33] VITALS: BP 140/70
== END 2020-04-16 19:15 | DRG 871 ==
LOC: M.ORTHSURG 11:31 → M.TBA-ER 20:13 → M.ORTHSURG 20:13 → M.2W 04-14 20:07
PROVIDERS: Family Medicine; Internal Medicine; Internal Medicine Critical Care Medicine; Internal Medicine Nephrology; Psychiatry & Neurology Neuromuscular Medicine; ADMIT Internal Medicine; ATTEND Internal Medicine
PROC: 6A550Z3 Pheresis of Plasma, Single (ICD-10-PCS; principal; 2020-04-11)
PROC: 30233M1 Transfusion of Nonautologous Plasma Cryoprecipitate into Peripheral Vein, Percutaneous Approach (ICD-10-PCS; 2020-04-12)
DX: A41.89 Other specified sepsis (principal); U07.1 COVID-19; N17.0 Acute kidney failure with tubular necrosis; R53.2 Functional quadriplegia; G61.0 Guillain-Barre syndrome; K22.10 Ulcer of esophagus without bleeding; N39.0 Urinary tract infection, site not specified; K52.9 Noninfective gastroenteritis and colitis, unspecified; M48.02 Spinal stenosis, cervical region; N40.0 Benign prostatic hyperplasia without lower urinary tract symptoms; G62.9 Polyneuropathy, unspecified; I12.9 Hypertensive chronic kidney disease with stage 1 through stage 4 chronic kidney disease, or unspecified chronic kidney disease; G47.33 Obstructive sleep apnea (adult) (pediatric); N18.9 Chronic kidney disease, unspecified; R06.89 Other abnormalities of breathing; G47.10 Hypersomnia, unspecified; J44.9 Chronic obstructive pulmonary disease, unspecified; Z85.46 Personal history of malignant neoplasm of prostate; Z92.3 Personal history of irradiation; Z88.0 Allergy status to penicillin; Z79.82 Long term (current) use of aspirin; Z79.899 Other long term (current) drug therapy; Z95.1 Presence of aortocoronary bypass graft

== ENCOUNTER 2020-04-16 15:18 | Inpatient (IN) | payer OTHER ==
[~2020-04-16] VITALS: Ht 172.7 cm; Wt 81.0 kg
[2020-04-16 21:00] VITALS: BP 124/70
[2020-04-17 04:25] LABS: HEMATOCRIT 24.6 % (42.0-52.0); HEMOGLOBIN 8.4 gm/dL (14.0-18.0); MCH 34.2 pg (26.0-34.0); MCV 100.8 fL (80.0-100.0); MPV 7.5 fl. (7.2-11.1); RBC 2.44 mil/uL (4.50-6.00); RDW-CV 17.2 % (10.5-14.5); WBC 9.7 thou/uL (4.0-11.0)
[2020-04-17 05:01] LABS: CALCIUM 9.1 mg/dL (8.5-10.1); CREATININE 0.8 mg/dL (0.6-1.3); POTASSIUM 4.7 mmol/L (3.5-5.1)
[2020-04-17 08:00] VITALS: BP 175/98
[2020-04-17 19:00] VITALS: BP 145/75
[2020-04-18 04:22] LABS: HEMATOCRIT 23.8 % (42.0-52.0); HEMOGLOBIN 8.2 gm/dL (14.0-18.0); MCH 34.7 pg (26.0-34.0); MCHC 34.4 g/dL (28.0-37.0); MPV 7.4 fl. (7.2-11.1); RBC 2.35 mil/uL (4.50-6.00); RDW-CV 16.8 % (10.5-14.5); WBC 8.9 thou/uL (4.0-11.0)
[2020-04-18 04:27] LABS: CALCIUM 8.7 mg/dL (8.5-10.1); CREATININE 0.7 mg/dL (0.6-1.3); POTASSIUM 4.8 mmol/L (3.5-5.1)
[2020-04-18 08:00] VITALS: BP 133/58
[2020-04-18 19:00] VITALS: BP 146/68
[2020-04-19 08:00] VITALS: BP 160/88
[2020-04-19 20:00] VITALS: BP 142/68
[2020-04-20 07:58] VITALS: BP 142/85
[2020-04-20 19:00] VITALS: BP 122/63
[2020-04-21 03:55] LABS: HEMATOCRIT 24.3 % (42.0-52.0); HEMOGLOBIN 8.2 gm/dL (14.0-18.0); MCH 34.5 pg (26.0-34.0); MCHC 33.7 g/dL (28.0-37.0); MCV 102.3 fL (80.0-100.0); RBC 2.38 mil/uL (4.50-6.00); RDW-CV 16.7 % (10.5-14.5); WBC 8.3 thou/uL (4.0-11.0)
[2020-04-21 04:11] LABS: ALBUMIN 3.5 g/dL (3.4-5.0); CALCIUM 8.7 mg/dL (8.5-10.1); CREATININE 0.9 mg/dL (0.6-1.3); MAGNESIUM 2.2 mg/dL (1.8-2.4); POTASSIUM 4.8 mmol/L (3.5-5.1); TOTAL BILIRUBIN 0.2 mg/dL (<0.1-1.0); TOTAL PROTEIN 5.9 g/dL (6.4-8.2)
[2020-04-21 08:00] VITALS: BP 158/69
[2020-04-21 20:00] VITALS: BP 134/94
[2020-04-22 07:50] VITALS: BP 140/83
[2020-04-22 19:52] VITALS: BP 113/63
[2020-04-23 08:00] VITALS: BP 176/81
[2020-04-23 10:30] LABS: HEMATOCRIT 27.9 % (42.0-52.0); HEMOGLOBIN 9.2 gm/dL (14.0-18.0); MCH 34.1 pg (26.0-34.0); MCHC 33.1 g/dL (28.0-37.0); MCV 103.1 fL (80.0-100.0); MPV 7.1 fl. (7.2-11.1); RBC 2.71 mil/uL (4.50-6.00); RDW-CV 16.4 % (10.5-14.5); WBC 14.8 thou/uL (4.0-11.0)
[2020-04-23 19:00] VITALS: BP 109/60
[2020-04-24 20:00] VITALS: BP 117/54
[2020-04-25 04:22] LABS: HEMATOCRIT 24.6 % (42.0-52.0); HEMOGLOBIN 8.4 gm/dL (14.0-18.0); MCH 34.4 pg (26.0-34.0); MCHC 34.1 g/dL (28.0-37.0); MCV 101.1 fL (80.0-100.0); MPV 7.2 fl. (7.2-11.1); RBC 2.43 mil/uL (4.50-6.00); WBC 11.4 thou/uL (4.0-11.0)
[2020-04-25 04:25] LABS: CALCIUM 8.7 mg/dL (8.5-10.1); CREATININE 0.9 mg/dL (0.6-1.3); POTASSIUM 4.5 mmol/L (3.5-5.1)
[2020-04-25 07:38] VITALS: BP 105/54
[2020-04-25 20:00] VITALS: BP 112/61
[2020-04-26 04:09] LABS: HEMATOCRIT 25.4 % (42.0-52.0); HEMOGLOBIN 8.4 gm/dL (14.0-18.0); MCH 34.1 pg (26.0-34.0); MCV 103.2 fL (80.0-100.0); MPV 7.1 fl. (7.2-11.1); RBC 2.46 mil/uL (4.50-6.00); RDW-CV 16.6 % (10.5-14.5); WBC 13.3 thou/uL (4.0-11.0)
[2020-04-26 04:28] LABS: CALCIUM 8.9 mg/dL (8.5-10.1); MAGNESIUM 2.1 mg/dL (1.8-2.4); POTASSIUM 4.4 mmol/L (3.5-5.1)
[2020-04-26 08:55] VITALS: BP 122/77
[2020-04-26 19:59] VITALS: BP 108/55
[2020-04-27 08:00] VITALS: BP 124/69
[2020-04-27 19:50] VITALS: BP 123/68
[2020-04-28 04:50] LABS: HEMATOCRIT 23.9 % (42.0-52.0); HEMOGLOBIN 8.2 gm/dL (14.0-18.0); MCH 34.6 pg (26.0-34.0); MCHC 34.3 g/dL (28.0-37.0); MPV 7.3 fl. (7.2-11.1); RBC 2.37 mil/uL (4.50-6.00); RDW-CV 15.5 % (10.5-14.5); WBC 10.7 thou/uL (4.0-11.0)
[2020-04-28 05:23] LABS: ALBUMIN 2.9 g/dL (3.4-5.0); MAGNESIUM 1.8 mg/dL (1.8-2.4); TOTAL BILIRUBIN 0.2 mg/dL (<0.1-1.0); TOTAL PROTEIN 6.4 g/dL (6.4-8.2)
[2020-04-28 07:43] VITALS: BP 145/75
[2020-04-28 19:00] VITALS: BP 109/57
[2020-04-29 08:00] VITALS: BP 147/76
[2020-04-29 19:00] VITALS: BP 121/61
[2020-04-30 04:38] LABS: HEMATOCRIT 23.1 % (42.0-52.0); HEMOGLOBIN 7.8 gm/dL (14.0-18.0); MCH 33.7 pg (26.0-34.0); MCHC 33.8 g/dL (28.0-37.0); MCV 99.9 fL (80.0-100.0); MPV 6.9 fl. (7.2-11.1); RBC 2.31 mil/uL (4.50-6.00); RDW-CV 15.4 % (10.5-14.5)
[2020-04-30 04:57] LABS: ALBUMIN 2.8 g/dL (3.4-5.0); CALCIUM 8.7 mg/dL (8.5-10.1); CREATININE 1.2 mg/dL (0.6-1.3); MAGNESIUM 1.7 mg/dL (1.8-2.4); POTASSIUM 4.3 mmol/L (3.5-5.1); TOTAL BILIRUBIN 0.2 mg/dL (<0.1-1.0)
[2020-04-30 08:00] VITALS: BP 102/60
--- NOTE | 2020-04-30 09:27 | EKG ---
[place] [address] ELECTROCARDIOGRAM REPORT Name: MARY ELLEN GONZALES Room: [address] ADM IN [facility]#: [id number] Admission: 04/16/20 Attend Phys: Taye Duarte MD Discharge: Date of : 57 Date of Service: 04/27/20 1043 Report #: [id number] THIS REPORT FOR: //name// [facility] Test Date: 2020-04-27 Test Time: 10:43:25 Pat Name: MARY ELLEN GONZALES Department: Room: [address] Gender: M Ply Splicer: UNKNOWN : 1955 Requested By: Gayla Gonzales Order Number: [id number] Reading MD: Fadi Mijares Measurements Intervals [place] Rate: 100 P: 67 NJ: 126 QRS: 50 QRSD: 79 T: -2 QT: 328 QTc: 423 Interpretive Statements Sinus tachycardia Borderline T wave abnormalities Compared to ECG 03/23/2020 10:11:36 Sinus rhythm no longer present Short [place] interval no longer present Electronically Signed On 04-30-2020 9:27:15 EDGE BANDING MACHINE OFFBEARER by Fadi Mijares [email or web address] <ELECTRONICALLY SIGNED> By: Fadi Mijares MD, [facility] 04/30/20 0927 1043 1043 Fadi Mijares MD, [facility] /EPI
[2020-04-30 19:34] VITALS: BP 114/63
[2020-05-01 07:30] VITALS: BP 95/54
[2020-05-01 14:47] VITALS: BP 97/58
[2020-05-01 19:00] VITALS: BP 110/59
[2020-05-02 04:40] LABS: HEMATOCRIT 24.7 % (42.0-52.0); HEMOGLOBIN 8.1 gm/dL (14.0-18.0); MCHC 32.8 g/dL (28.0-37.0); MCV 100.7 fL (80.0-100.0); MPV 6.9 fl. (7.2-11.1); RBC 2.45 mil/uL (4.50-6.00); RDW-CV 15.9 % (10.5-14.5); WBC 13.7 thou/uL (4.0-11.0)
[2020-05-02 04:56] LABS: CREATININE 1.1 mg/dL (0.6-1.3); POTASSIUM 4.7 mmol/L (3.5-5.1)
[2020-05-02 08:00] VITALS: BP 132/65
[2020-05-02 19:30] VITALS: BP 116/56
[2020-05-03 07:40] VITALS: BP 116/68
[2020-05-03 20:00] VITALS: BP 111/60
[2020-05-04 07:50] VITALS: BP 92/67
[2020-05-04 20:00] VITALS: BP 105/52
[2020-05-05 08:28] VITALS: BP 120/65
[2020-05-05 20:10] VITALS: BP 91/47
[2020-05-06 07:30] VITALS: BP 112/71
[2020-05-06 19:15] VITALS: BP 82/45
[2020-05-06 19:20] VITALS: BP 75/43
[2020-05-06 22:10] VITALS: BP 101/47
[2020-05-07 08:00] VITALS: BP 109/70
[2020-05-07 19:00] VITALS: BP 94/41
[2020-05-08 07:40] VITALS: BP 130/68
[2020-05-08 20:00] VITALS: BP 95/50
[2020-05-09 04:14] LABS: HEMATOCRIT 24.4 % (42.0-52.0); MCH 33.1 pg (26.0-34.0); MCHC 32.8 g/dL (28.0-37.0); MCV 100.9 fL (80.0-100.0); MPV 6.7 fl. (7.2-11.1); RBC 2.42 mil/uL (4.50-6.00); RDW-CV 16.2 % (10.5-14.5); WBC 11.8 thou/uL (4.0-11.0)
[2020-05-09 04:25] LABS: CALCIUM 8.9 mg/dL (8.5-10.1); CREATININE 1.3 mg/dL (0.6-1.3); POTASSIUM 5.4 mmol/L (3.5-5.1)
[2020-05-09 08:00] VITALS: BP 109/58
[2020-05-09 19:45] VITALS: BP 85/47
[2020-05-10 05:14] VITALS: BP 113/58
[2020-05-10 09:29] VITALS: BP 99/40
[2020-05-10 19:35] VITALS: BP 97/47
[2020-05-11 08:00] VITALS: BP 110/53
[2020-05-11 20:00] VITALS: BP 123/55
[2020-05-12 04:23] LABS: HEMATOCRIT 24.7 % (42.0-52.0); HEMOGLOBIN 8.3 gm/dL (14.0-18.0); MCH 33.6 pg (26.0-34.0); MCHC 33.6 g/dL (28.0-37.0); MCV 100.1 fL (80.0-100.0); MPV 6.8 fl. (7.2-11.1); RBC 2.47 mil/uL (4.50-6.00); WBC 12.4 thou/uL (4.0-11.0)
[2020-05-12 04:45] LABS: CREATININE 1.5 mg/dL (0.6-1.3); POTASSIUM 5.1 mmol/L (3.5-5.1)
[2020-05-12 07:50] VITALS: BP 96/47
[2020-05-12 12:14] LABS: URINE BLOOD 3+ (Negative); URINE CLARITY CLOUDY; URINE COLOR RED; URINE GLUCOSE-RANDOM NEGATIVE (Negative); URINE KETONES NEGATIVE (Negative); URINE LEUKOCYTES-REFLEX 1+ (Negative); URINE NITRITE-REFLEX NEGATIVE (Negative); URINE PROTEIN 2+ (Negative); URINE UROBILINOGEN 0.2 E.U./dl (0.2-1.0)
[2020-05-12 12:15] LABS: ICTOTEST (BILI CONFIRMATORY) Negative (Negative); URINE BILIRUBIN 1+ (Negative)
[2020-05-12 12:16] LABS: SQUAMOUS NONE SEEN /LPF (0-3); URINE WBC-REFLEX 6-15 Few /HPF (0-5)
[2020-05-12 12:17] LABS: CASTS None Seen /LPF (None Seen); CRYSTALS None Seen /LPF (None Seen); MUCUS None Seen strn/LPF (None Seen); URINE RBC >20 Many /HPF (0-2)
[2020-05-12 19:00] VITALS: BP 77/45
[2020-05-12 20:30] VITALS: BP 74/48
[2020-05-12 22:30] VITALS: BP 79/43
[2020-05-13 04:41] LABS: HEMOGLOBIN 7.5 gm/dL (14.0-18.0)
[2020-05-13 06:09] VITALS: BP 98/49
[2020-05-13 07:30] VITALS: BP 121/58
[2020-05-13 20:00] VITALS: BP 93/46
[2020-05-14 05:29] LABS: HEMATOCRIT 23.3 % (42.0-52.0); HEMOGLOBIN 7.8 gm/dL (14.0-18.0); MCH 34.2 pg (26.0-34.0); MCHC 33.7 g/dL (28.0-37.0); MCV 101.5 fL (80.0-100.0); MPV 6.3 fl. (7.2-11.1); RBC 2.29 mil/uL (4.50-6.00)
[2020-05-14 05:34] LABS: CALCIUM 8.7 mg/dL (8.5-10.1); CREATININE 1.2 mg/dL (0.6-1.3); POTASSIUM 5.4 mmol/L (3.5-5.1)
[2020-05-14 08:15] VITALS: BP 129/59
[2020-05-14 19:00] VITALS: BP 95/58
[2020-05-15 08:00] VITALS: BP 113/65
[2020-05-15 19:00] VITALS: BP 98/55
[2020-05-15 19:02] VITALS: BP 90/55
[2020-05-15 19:04] VITALS: BP 85/53
[2020-05-16 03:57] LABS: HEMATOCRIT 24.4 % (42.0-52.0); HEMOGLOBIN 8.2 gm/dL (14.0-18.0); MCH 34.1 pg (26.0-34.0); MCHC 33.7 g/dL (28.0-37.0); MCV 101.2 fL (80.0-100.0); MPV 6.5 fl. (7.2-11.1); RBC 2.41 mil/uL (4.50-6.00); RDW-CV 15.7 % (10.5-14.5); WBC 9.3 thou/uL (4.0-11.0)
[2020-05-16 04:16] LABS: ALBUMIN 2.7 g/dL (3.4-5.0); CREATININE 1.2 mg/dL (0.6-1.3); MAGNESIUM 2.1 mg/dL (1.8-2.4); POTASSIUM 5.1 mmol/L (3.5-5.1); TOTAL BILIRUBIN 0.2 mg/dL (<0.1-1.0); TOTAL PROTEIN 6.8 g/dL (6.4-8.2)
[2020-05-16 08:23] VITALS: BP 117/56
[2020-05-16 19:51] VITALS: BP 108/49
[2020-05-17 04:04] LABS: HEMOGLOBIN 7.6 gm/dL (14.0-18.0); MCH 33.4 pg (26.0-34.0); MCHC 33.1 g/dL (28.0-37.0); MCV 100.9 fL (80.0-100.0); MPV 6.3 fl. (7.2-11.1); RBC 2.28 mil/uL (4.50-6.00); RDW-CV 15.6 % (10.5-14.5); WBC 9.5 thou/uL (4.0-11.0)
[2020-05-17 04:26] LABS: ALBUMIN 2.6 g/dL (3.4-5.0); CALCIUM 8.4 mg/dL (8.5-10.1); CREATININE 1.2 mg/dL (0.6-1.3); POTASSIUM 4.9 mmol/L (3.5-5.1); TOTAL BILIRUBIN 0.2 mg/dL (<0.1-1.0); TOTAL PROTEIN 6.4 g/dL (6.4-8.2)
[2020-05-17 07:45] VITALS: BP 115/60
[2020-05-17 20:00] VITALS: BP 97/52
[2020-05-18 08:07] VITALS: BP 110/56
[2020-05-18 20:00] VITALS: BP 121/52
[2020-05-19 07:22] VITALS: BP 124/62
[2020-05-19 19:00] VITALS: BP 125/68
[2020-05-20 07:37] VITALS: BP 124/61
[2020-05-20 13:16] LABS: ABSOLUTE BASOPHILS 0.1 thou/uL (0.0-0.2); ABSOLUTE EOSINOPHILS 0.2 thou/uL (0.0-0.7); ABSOLUTE LYMPHOCYTES 1.1 thou/uL (0.8-5.3); ABSOLUTE MONOCYTES 1.2 thou/uL (0.0-1.2); ABSOLUTE NEUTROPHILS 8.8 thou/uL (1.6-8.1); BASOPHILS 0.7 %; EOSINOPHILS 1.7 %; HEMATOCRIT 25.9 % (42.0-52.0); HEMOGLOBIN 8.8 gm/dL (14.0-18.0); LYMPHOCYTES 9.8 %; MONOCYTES 10.4 %; MPV 6.6 fl. (7.2-11.1); NUCLEATED RBCS 0 /100WBC; PLATELET COUNT* 546 thou/uL (150-400); POLYS 77.4 %; RBC 2.59 mil/uL (4.50-6.00); RDW-CV 15.3 % (10.5-14.5); WBC 11.4 thou/uL (4.0-11.0)
[2020-05-20 19:50] VITALS: BP 103/64
[2020-05-21 08:00] VITALS: BP 115/60
[2020-05-21 20:00] VITALS: BP 124/57
[2020-05-22 08:00] VITALS: BP 120/70
[2020-05-22 20:15] VITALS: BP 138/72
[2020-05-23 04:47] LABS: HEMATOCRIT 23.1 % (42.0-52.0); HEMOGLOBIN 7.8 gm/dL (14.0-18.0); MCH 32.8 pg (26.0-34.0); MCHC 33.7 g/dL (28.0-37.0); MCV 97.6 fL (80.0-100.0); MPV 6.4 fl. (7.2-11.1); RBC 2.37 mil/uL (4.50-6.00); RDW-CV 15.3 % (10.5-14.5); WBC 12.6 thou/uL (4.0-11.0)
[2020-05-23 05:03] LABS: CALCIUM 8.5 mg/dL (8.5-10.1); POTASSIUM 4.1 mmol/L (3.5-5.1)
[2020-05-23 07:50] VITALS: BP 124/69
[2020-05-23 20:16] VITALS: BP 125/47
[2020-05-24 08:17] VITALS: BP 129/59
[2020-05-24 19:45] VITALS: BP 114/62
[2020-05-25 05:11] LABS: HEMATOCRIT 23.3 % (42.0-52.0); HEMOGLOBIN 7.9 gm/dL (14.0-18.0); MCHC 33.8 g/dL (28.0-37.0); MCV 97.5 fL (80.0-100.0); MPV 6.8 fl. (7.2-11.1); RBC 2.39 mil/uL (4.50-6.00); RDW-CV 15.5 % (10.5-14.5); WBC 8.7 thou/uL (4.0-11.0)
[2020-05-25 06:07] LABS: ALBUMIN 2.4 g/dL (3.4-5.0); CALCIUM 8.4 mg/dL (8.5-10.1); CREATININE 0.8 mg/dL (0.6-1.3); MAGNESIUM 1.9 mg/dL (1.8-2.4); POTASSIUM 3.9 mmol/L (3.5-5.1); TOTAL BILIRUBIN 0.1 mg/dL (<0.1-1.0); TOTAL PROTEIN 6.4 g/dL (6.4-8.2)
[2020-05-25 08:06] VITALS: BP 117/62
[2020-05-25 20:00] VITALS: BP 119/61
[2020-05-26 07:38] VITALS: BP 126/64
[2020-05-26 20:00] VITALS: BP 130/66
[2020-05-27 08:00] VITALS: BP 123/71
[2020-05-27 20:10] VITALS: BP 121/65
[2020-05-28 07:36] VITALS: BP 127/77
[2020-05-28 20:03] VITALS: BP 123/63
[2020-05-29 08:00] VITALS: BP 135/70
[2020-05-29 19:41] VITALS: BP 120/57
[2020-05-30 04:12] LABS: CALCIUM 8.6 mg/dL (8.5-10.1); CREATININE 0.9 mg/dL (0.6-1.3); POTASSIUM 3.8 mmol/L (3.5-5.1)
[2020-05-30 04:52] LABS: HEMATOCRIT 26.1 % (42.0-52.0); HEMOGLOBIN 8.8 gm/dL (14.0-18.0); MCH 32.3 pg (26.0-34.0); MCHC 33.7 g/dL (28.0-37.0); MPV 6.9 fl. (7.2-11.1); RBC 2.72 mil/uL (4.50-6.00); RDW-CV 15.7 % (10.5-14.5)
[2020-05-30 08:30] VITALS: BP 133/60
[2020-05-30] MEDS ORDERED: GABAPENTIN 100100 MG PO (10:21)
[2020-05-30] MEDS ORDERED: VENTOLIN HFA INH8 GM INH (10:21)
[2020-05-30] MEDS ORDERED: TAMSULOSIN HCL0.4 MG PO ×2 (10:21→10:23)
[2020-05-30] MEDS ORDERED: FLORINEF ACETA0.1 MG PO (10:23)
[2020-05-30 13:32] VITALS: BP 133/60
[2020-05-30 14:48] VITALS: BP 133/60
== END 2020-05-30 16:15 | disposition home health service (06) | DRG 947 ==
LOC: M.REH 15:18
PROVIDERS: Family Medicine; Internal Medicine; Nurse Practitioner Family; ADMIT Physical Medicine & Rehabilitation; ATTEND Physical Medicine & Rehabilitation
DX: R53.81 Other malaise (principal); A41.9 Sepsis, unspecified organism; R53.2 Functional quadriplegia; J18.9 Pneumonia, unspecified organism; N17.9 Acute kidney failure, unspecified; N39.0 Urinary tract infection, site not specified; G61.0 Guillain-Barre syndrome; K92.2 Gastrointestinal hemorrhage, unspecified; J44.0 Chronic obstructive pulmonary disease with (acute) lower respiratory infection; K22.10 Ulcer of esophagus without bleeding; Z20.822 Contact with and (suspected) exposure to COVID-19; I10 Essential (primary) hypertension; E78.00 Pure hypercholesterolemia, unspecified; M48.02 Spinal stenosis, cervical region; I73.9 Peripheral vascular disease, unspecified; K52.9 Noninfective gastroenteritis and colitis, unspecified; F17.210 Nicotine dependence, cigarettes, uncomplicated; N40.1 Benign prostatic hyperplasia with lower urinary tract symptoms; I70.0 Atherosclerosis of aorta; D72.829 Elevated white blood cell count, unspecified; K64.9 Unspecified hemorrhoids; K59.03 Drug induced constipation; T40.605A Adverse effect of unspecified narcotics, initial encounter; R31.0 Gross hematuria; I95.2 Hypotension due to drugs; R13.10 Dysphagia, unspecified; Z88.8 Allergy status to other drugs, medicaments and biological substances; I80.9 Phlebitis and thrombophlebitis of unspecified site; Z92.3 Personal history of irradiation; Z88.0 Allergy status to penicillin; Z95.820 Peripheral vascular angioplasty status with implants and grafts; Z79.82 Long term (current) use of aspirin; Z79.899 Other long term (current) drug therapy; Y92.89 Other specified places as the place of occurrence of the external cause

== ENCOUNTER 2020-06-13 09:46 | Emergency (ER) | payer OTHER ==
[~2020-06-13] VITALS: Ht 170.2 cm; Wt 83.0 kg
[~2020-06-13 09:46] MED LIST changes: +FLORINEF ACETA0.1 MG PO
[2020-06-13] MEDS ORDERED: GABAPENTIN100 MG PO (10:00)
[2020-06-13 10:26] LABS: ABSOLUTE BASOPHILS 0.2 thou/uL (0.0-0.2); ABSOLUTE EOSINOPHILS 0.9 thou/uL (0.0-0.7); ABSOLUTE LYMPHOCYTES 1.6 thou/uL (0.8-5.3); ABSOLUTE MONOCYTES 0.7 thou/uL (0.0-1.2); ABSOLUTE NEUTROPHILS 5.7 thou/uL (1.6-8.1); BASOPHILS 1.8 %; EOSINOPHILS 9.9 %; HEMATOCRIT 30.6 % (42.0-52.0); HEMOGLOBIN 10.1 gm/dL (14.0-18.0); LYMPHOCYTES 18.1 %; MCH 31.2 pg (26.0-34.0); MCV 94.6 fL (80.0-100.0); MPV 6.2 fl. (7.2-11.1); NUCLEATED RBCS 0 /100WBC; PLATELET COUNT* 696 thou/uL (150-400); POLYS 62.2 %; RBC 3.24 mil/uL (4.50-6.00); RDW-CV 16.2 % (10.5-14.5); WBC 9.1 thou/uL (4.0-11.0)
[2020-06-13 10:39] LABS: CALCIUM 8.1 mg/dL (8.5-10.1); CREATININE 0.9 mg/dL (0.6-1.3); POTASSIUM 4.1 mmol/L (3.5-5.1)
[2020-06-13 10:48] LABS: APTT 26.7 Seconds (25.0-31.3); PROTIME 10.7 Seconds (9.20-11.50)
[2020-06-13 10:53] LABS: ALBUMIN 2.8 g/dL (3.4-5.0); CK-MB MASS 0.8 ng/mL (<0.5-3.6); MAGNESIUM 1.7 mg/dL (1.8-2.4); TOTAL BILIRUBIN 0.2 mg/dL (<0.1-1.0)
[2020-06-13] MEDS ORDERED: LASIX 40 MG TAB40 MG PO (11:01)
[2020-06-13] MEDS ORDERED: KLOR-CON 1010 MEQ PO (11:01)
[2020-06-13 11:45] VITALS: BP 119/68
--- NOTE | 2020-06-13 16:30 | EKG ---
[place] [address] ELECTROCARDIOGRAM REPORT Name: MARY ELLEN ELMORE Room: [facility]#: [id number] Admission: 06/13/20 Attend Phys: Discharge: 06/13/20 Date of : 57 Date of Service: 06/13/20 1117 Report #: [id number] THIS REPORT FOR: //name// [facility] Test Date: 2020-06-13 Test Time: 11:17:56 Pat Name: MARY ELLEN ELMORE Department: Room: Gender: Licensing Coordinator: : 1955 Requested By: Tab Sifuentes Order Number: [id number] MD: Fadi Mijares Measurements Intervals [place] Rate: 77 P: 48 MA: 112 QRS: 48 QRSD: 84 T: 56 QT: 417 QTc: 472 Interpretive Statements Sinus rhythm septal q waves Borderline short [place] interval Compared to ECG 04/27/2020 10:43:25 Sinus tachycardia no longer present T-wave abnormality no longer present Electronically Signed On 06-13-2020 16:30:16 NEON SIGN MECHANIC by Fadi Mijares [email or web address] <ELECTRONICALLY SIGNED> By: Fadi Mijares MD, [facility] 06/13/20 1630 1117 1117 Fadi Mijares MD, [facility] /EPI
== END 2020-06-13 11:45 | disposition home or self-care (01) ==
LOC: M.ERS 09:46
PROVIDERS: Family Medicine
DX: R60.0 Localized edema (principal); I10 Essential (primary) hypertension; J44.9 Chronic obstructive pulmonary disease, unspecified; N40.0 Benign prostatic hyperplasia without lower urinary tract symptoms; Z88.0 Allergy status to penicillin; Z88.6 Allergy status to analgesic agent; Z79.899 Other long term (current) drug therapy

== ENCOUNTER → 2020-06-14 | Outpatient (CLI) | payer OTHER ==
[~2020-06-14] MED LIST changes: +GABAPENTIN100 MG PO; +KLOR-CON 1010 MEQ PO; +LASIX 40 MG TAB40 MG PO
== END ==
LOC: M.MRI 10:04
PROVIDERS: ATTEND Psychiatry & Neurology Neuromuscular Medicine
DX: M51.36 Other intervertebral disc degeneration, lumbar region (principal); M47.816 Spondylosis without myelopathy or radiculopathy, lumbar region; M48.061 Spinal stenosis, lumbar region without neurogenic claudication; G81.00 Flaccid hemiplegia affecting unspecified side; G95.9 Disease of spinal cord, unspecified; M48.00 Spinal stenosis, site unspecified; M51.34 Other intervertebral disc degeneration, thoracic region; M25.78 Osteophyte, vertebrae; Z87.898 Personal history of other specified conditions

== ENCOUNTER 2020-06-24 10:41 | Emergency (ER) | payer OTHER ==
[~2020-06-24] VITALS: Ht 170.2 cm; Wt 81.7 kg
[2020-06-24 12:24] VITALS: BP 131/65
[2020-06-24 12:31] LABS: ABSOLUTE BASOPHILS 0.1 thou/uL (0.0-0.2); ABSOLUTE EOSINOPHILS 0.3 thou/uL (0.0-0.7); ABSOLUTE LYMPHOCYTES 1.4 thou/uL (0.8-5.3); ABSOLUTE MONOCYTES 0.6 thou/uL (0.0-1.2); ABSOLUTE NEUTROPHILS 6.9 thou/uL (1.6-8.1); BASOPHILS 1.2 %; EOSINOPHILS 3.4 %; HEMATOCRIT 35.8 % (42.0-52.0); HEMOGLOBIN 11.7 gm/dL (14.0-18.0); LYMPHOCYTES 15.4 %; MCH 31.2 pg (26.0-34.0); MCHC 32.6 g/dL (28.0-37.0); MCV 95.6 fL (80.0-100.0); MONOCYTES 5.9 %; MPV 6.2 fl. (7.2-11.1); NUCLEATED RBCS 0 /100WBC; PLATELET COUNT* 484 thou/uL (150-400); POLYS 74.1 %; RBC 3.75 mil/uL (4.50-6.00); RDW-CV 16.4 % (10.5-14.5); WBC 9.3 thou/uL (4.0-11.0)
[2020-06-24 12:36] LABS: CALCIUM 8.8 mg/dL (8.5-10.1)
[2020-06-24 12:41] LABS: TOTAL BILIRUBIN 0.4 mg/dL (<0.1-1.0); TOTAL PROTEIN 7.4 g/dL (6.4-8.2)
[2020-06-24 13:30] LABS: ESR (SEDRATE) 53 mm/hr (0-20)
[2020-06-24 23:06] LABS: IgA 485 mg/dL (61-437); IgG 1320 mg/dL (603-1613); IgM 153 mg/dL (20-172)
[2020-06-25 02:06] LABS: HIV-1/HIV-2 ANTIBODY Non Reactive (Non Reactive)
[2020-06-25 22:06] LABS: HEPATITIS B SURFACE AG Negative (Negative)
[2020-06-26 14:08] LABS: ANA INTERPRETATION Negative (Negative); ANTI-SSA <0.2 AI (0.0-0.9)
== END 2020-06-24 12:25 | disposition home or self-care (01) ==
LOC: M.ERS 10:41
PROVIDERS: Nurse Practitioner Family
DX: S37.39XA Other injury of urethra, initial encounter (principal); R31.9 Hematuria, unspecified; I10 Essential (primary) hypertension; J44.9 Chronic obstructive pulmonary disease, unspecified; N40.0 Benign prostatic hyperplasia without lower urinary tract symptoms; Z88.0 Allergy status to penicillin; Z88.6 Allergy status to analgesic agent; X58.XXXA Exposure to other specified factors, initial encounter; Y93.89 Activity, other specified; Y92.89 Other specified places as the place of occurrence of the external cause; Y99.8 Other external cause status

== ENCOUNTER → 2020-07-04 | Outpatient (CLI) | payer OTHER ==
[2020-07-04 14:36] LABS: ABSOLUTE BASOPHILS 0.1 thou/uL (0.0-0.2); ABSOLUTE EOSINOPHILS 0.2 thou/uL (0.0-0.7); ABSOLUTE LYMPHOCYTES 1.9 thou/uL (0.8-5.3); ABSOLUTE MONOCYTES 0.8 thou/uL (0.0-1.2); ABSOLUTE NEUTROPHILS 5.9 thou/uL (1.6-8.1); BASOPHILS 1.2 %; HEMOGLOBIN 11.6 gm/dL (14.0-18.0); LYMPHOCYTES 21.2 %; MCH 30.7 pg (26.0-34.0); MCV 93.1 fL (80.0-100.0); MONOCYTES 9.2 %; MPV 6.3 fl. (7.2-11.1); NUCLEATED RBCS 0 /100WBC; PLATELET COUNT* 482 thou/uL (150-400); POLYS 66.4 %; RBC 3.76 mil/uL (4.50-6.00); WBC 8.9 thou/uL (4.0-11.0)
[2020-07-04 14:58] LABS: ALBUMIN 2.9 g/dL (3.4-5.0); CALCIUM 7.9 mg/dL (8.5-10.1); CREATININE 1.1 mg/dL (0.6-1.3); POTASSIUM 3.7 mmol/L (3.5-5.1); TOTAL BILIRUBIN 0.3 mg/dL (<0.1-1.0); TOTAL PROTEIN 7.2 g/dL (6.4-8.2)
== END ==
LOC: M.LAB 14:17
PROVIDERS: ATTEND Psychiatry & Neurology Neuromuscular Medicine
DX: G61.0 Guillain-Barre syndrome (principal)

== ENCOUNTER → 2020-07-05 | Outpatient (CLI) | payer OTHER ==
--- NOTE | 2020-07-06 13:28 | PF ---
[address] [address] PULMONARY FUNCTION REPORT Name: MARY ELLEN ELMORE Room: [facility]#: [id number] Admission: 07/05/20 Attend Phys: Madan Zepeda MD Discharge: Date of : 57 Report #: [id number] THIS REPORT FOR: cc: Birgit Davidson MD, Molly MD ~ Dion Polanco MD DATE OF SERVICE: 07/05/2020 The FEV1/FVC ratio is markedly decreased to 41% with a forced vital capacity decreased to 66% and FEV1 decreased to 36%. The [id number] is also decreased to 17%. After the administration of a bronchodilator, the forced vital capacity increases by 19% and the FEV1 increases by 27%. This increases more than 200 mL. The patient's post-bronchodilator FEV1 is 1.42 liters. The flow volume loop is concave upwards. The total lung capacity is normal, but close to the upper limit of normal range at 112%. The residual volume is increased to 180%. The DLCO as adjusted for hemoglobin is markedly decreased to 19% only. IMPRESSION: 1. Severe obstruction with evidence of reversibility. 2. Hyperinflation with a high normal total lung capacity and residual volume increased to 180%. 3. The DLCO as adjusted for hemoglobin is decreased to 19% only. <ELECTRONICALLY SIGNED> By: Dion Polanco MD 07/06/20 1328 0933 0938MD dalila Campbell
== END ==
LOC: M.PUL 13:00
PROVIDERS: ATTEND Psychiatry & Neurology Neuromuscular Medicine
DX: G51.0 Bell's palsy (principal); Z79.899 Other long term (current) drug therapy